=== PATIENT | male | born 1975 | race Two or more races ===

== ENCOUNTER 2019-06-23 08:55 | Inpatient (IN) | payer MEDICARE, MEDICAID ==
[~2019-06-23] VITALS: Ht 180.3 cm; Wt 88.5 kg
--- NOTE | 2019-06-23 08:48 | NUR ---
ED Nurse Note: pt arrived with RA 861 due to back pain. per pt he was sitting at the bus stop and his knees "buckled and i fell back on the bus stop chair and hit my back"
[2019-06-23 08:50] VITALS: BP 152/95
[~2019-06-23 08:55] MED LIST: CLINDAMYCIN HC300 MG ORAL; DAPSONE25 MG ORAL; ESCITALOPRAM OX20 MG ORAL; FISH OIL500 M2 PO; GABAPENTIN800 MG ORAL; HYDROCODON-ACE1 EA13 ORAL; IBUPROFEN600 MG ORAL; ISENTRESS400 MG ORAL; LEVETIRACETAM500 MG ORAL; LISINOPRIL20 MG ORAL; METFORMIN HCL850 M1 ORAL; MORPHINE SULFAT30 M7 PO; NORCO 5-325 TA1 EACH ORAL; PERCOCET 5-3251 EACH ORAL; PREDNISONE20 MG ORAL; TIZANIDINE HCL4 MG ORAL; TRUVADA1 TAB ORAL; VORICONAZOLE200 MG ORAL; WARFARIN SODIUM1 MG ORAL; XARELTO10 MG ORAL; ZOFRAN ODT4 MG ORAL
--- NOTE | 2019-06-23 09:11 | Emergency Room Report ---
History of Present Illness General Chief Complaint: Multiple Trauma/Fall Source: Patient Present Illness HPI Patient presents with increased back pain. He had a period of loss of consciousness and woke up on the ground next to a bus bench. He was not feeling well prior to that. He has chronic pain but after he woke up he had excruciating pain in his lower back. The pain radiates somewhat towards his right leg. He was transported by BLS as they did not understand that the patient lost consciousness. He bit his tongue on the R side. The pain is rated 10/10, burning and and aching. He is quite anxious. He felt somewhat nauseated. No vomiting. He has a fentanyl patch. Review of med recon reveals Keppra. H/O seizures and coccidiomycosis encephalitis. Prior dose of Keppra documented 2 g twice a day. His reports that this is now 1500 mg twice a day. The patient is also on antivirals and was taking Xarelto. He has a history of DVT and pulmonary embolus. An IVC filter has been placed. Patient admits to methamphetamine use earlier. No fevers, chills, sore throat, chest pain, palpitations, diarrhea, dysuria, abdominal pain, shortness of breath, rashes. Allergies: Coded Allergies: SULFA (SULFONAMIDE ANTIBIOTICS) (Verified Allergy, Mild, 06/21/09) MORPHINE (Verified Allergy, Unknown, 10/13/14) ALLERGIC TO LIQUID MORPHINE ONLY PER S.O. Uncoded Allergies: SULFA (Allergy, Unknown, 06/23/19) Patient History Past Medical History: see triage record Past Surgical History: other - IVC flter, Port-A-Cath Social History: Reports: smoking, drug use Social History Narrative Reviewed Nursing Documentation: PMH: Agreed; PSxH: Agreed Nursing Documentation-PMH Past Medical History: No History, Except For Hx Cardiac Problems: No - HIV, substance abuse, Meningitis, shunt Hx Hypertension: Yes Hx COPD: Yes - PE Hx Diabetes: Yes Hx Cancer: No Hx Gastrointestinal Problems: Yes - hiv History Of Psychiatric Problem: Yes Hx Meningitis: Yes Hx Encephalitis: Yes - ENCEPHALOPATHY Hx Seizures: Yes Hx Peripheral Neuropathy: Yes Hx Concentration Difficulty: Yes Hx Dizziness: Yes Hx Headaches: Yes Hx Weakness: Yes Hx Fatigue: Yes Hx Neurologic Surgery: Yes Review of Systems All Other Systems: negative except mentioned in HPI Physical Exam Vital Signs Date Time Temp Pulse Resp B/P (MAP) Pulse Ox O2 Delivery O2 Flow Rate FiO2 06/23/19 08:40 97.7 74 17 152/95 (114) 100 Room Air Sp02 EP Interpretation: reviewed, normal General Appearance: GCS 15, non-toxic, moderate distress Head: normocephalic Eyes: bilateral eye PERRL, bilateral eye EOMI, bilateral eye Scleral Injection ENT: moist mucus membranes - Lingual maceration right Neck: full range of motion, supple, no bony tend Respiratory: chest non-tender, lungs clear, normal breath sounds Cardiovascular #1: regular rate, rhythm Cardiovascular #2: 2+ radial (R) Gastrointestinal: normal inspection, normal bowel sounds, non tender, no mass, non-distended Musculoskeletal: decreased range of motion - Due to pain, no calf tenderness, tender - Lumbar area with possible point tenderness, other - Straight leg raise bilaterally increases back pain. Neurologic: alert, motor strength/tone normal, photographic process attendant III-XII nml as tested, DTRs symmetric, oriented x3, sensory intact Psychiatric: anxious Skin: no rash, warm/dry Medical Decision Making Diagnostic Impression: Primary Impression: Uncontrolled seizures Qualified Codes: R56.9 - Unspecified convulsions Additional Impressions: Substance abuse Fall Qualified Codes: W19.XXXA - Unspecified fall, initial encounter Lumbar contusion Qualified Codes: S30.0XXA - Contusion of lower back and pelvis, initial encounter Anemia Qualified Codes: D64.89 - Other specified anemias Thrombocytopenia Opiate dependence Qualified Codes: F11.29 - Opioid dependence with unspecified opioid-induced disorder ER Course Patient presents with a period of loss of consciousness and increased back pain. Differential includes syncope, exacerbation of back pain, lumbar fracture , seizure amongst others. Evaluation with EKG, chest x-ray, CT of the lumbar spine and labs. Patient given dose of Toradol, Ativan and Keppra. Keppra level drawn before Keppra given. Due to the high risk comorbidities most likely patient will need to be admitted for observation. We need to exclude unstable fracture of the lumbar spine. EKG normal sinus rhythm with sinus arrhythmia. Chest x-ray with Port-A-Cath. No infiltrates. Labs with pancytopenia. Elevated liver transaminases and CPK. Bicarbonate 19. Tox screen positive for amphetamine. CT of the back without fracture. See full report below. Patient improved with analgesia in particular after opiates administered. Because of the possibility of uncontrolled seizures patient admitted telemetry observation. In addition he has increased risk of hematoma formation due to thrombocytopenia. Discussed results with . Laboratory Tests Test 06/23/19 09:34 06/23/19 10:37 White Blood Count 4.8 K/UL (4.8-10.8) Red Blood Count 3.42 M/UL (4.70-6.10) L Hemoglobin 9.5 G/DL (14.2-18.0) L Hematocrit 29.0 % (42.0-52.0) L Mean Corpuscular Volume 85 FL (80-99) Mean Corpuscular Hemoglobin 27.8 PG (27.0-31.0) Mean Corpuscular Hemoglobin Concent 32.9 G/DL (32.0-36.0) Red Cell Distribution Width 15.2 % (11.6-14.8) H Platelet Count 51 K/UL (150-450) L Mean Platelet Volume 6.0 FL (6.5-10.1) L Neutrophils (%) (Auto) % (45.0-75.0) Lymphocytes (%) (Auto) % (20.0-45.0) Monocytes (%) (Auto) % (1.0-10.0) Eosinophils (%) (Auto) % (0.0-3.0) Basophils (%) (Auto) % (0.0-2.0) Differential Total Cells Counted 100 Neutrophils % (Manual) 62 % (45-75) Lymphocytes % (Manual) 30 % (20-45) Monocytes % (Manual) 8 % (1-10) Eosinophils % (Manual) 0 % (0-3) Basophils % (Manual) 0 % (0-2) Band Neutrophils 0 % (0-8) Platelet Estimate Decreased L Platelet Morphology Normal Anisocytosis 1+ Sodium Level 140 MMOL/L (136-145) Potassium Level 4.0 MMOL/L (3.5-5.1) Chloride Level 109 MMOL/L (98-107) H Carbon Dioxide Level 19 MMOL/L (21-32) L Anion Gap 12 mmol/L (5-15) Blood Urea Nitrogen 23 mg/dL (7-18) H Creatinine 1.0 MG/DL (0.55-1.30) Estimate Glomerular Filtration Rate > 60 mL/min (>60) Glucose Level 129 MG/DL (74-106) H Calcium Level 7.9 MG/DL (8.5-10.1) L Total Bilirubin 2.5 MG/DL (0.2-1.0) H Direct Bilirubin 0.5 MG/DL (0.0-0.3) H Aspartate Amino Transferase (AST) 56 U/L (15-37) H Alanine Aminotransferase (ALT) 28 U/L (12-78) Alkaline Phosphatase 203 U/L (46-116) H Total Creatine Kinase 775 U/L (26-308) H Troponin I 0.001 ng/mL (0.000-0.056) Total Protein 6.9 G/DL (6.4-8.2) Albumin 3.7 G/DL (3.4-5.0) Globulin 3.2 g/dL Albumin/Globulin Ratio 1.2 (1.0-2.7) Acetaminophen Level < 2 MCG/ML (10-30) L Levetiracetam Level Pending Serum Alcohol < 3 mg/dL Urine Color Yellow Urine Appearance Clear Urine pH 6 (4.5-8.0) Urine Specific Corry 1.010 (1.005-1.035) Urine Protein 3+ (NEGATIVE) H Urine Glucose (UA) Negative (NEGATIVE) Urine Ketones Negative (NEGATIVE) Urine Blood 2+ (NEGATIVE) H Urine Nitrite Negative (NEGATIVE) Urine Bilirubin Negative (NEGATIVE) Urine Urobilinogen Normal MG/DL (0.0-1.0) Urine Leukocyte Esterase Negative (NEGATIVE) Urine RBC 2-4 /HPF (0 - 0) H Urine WBC 0-2 /HPF (0 - 0) Urine Squamous Epithelial Cells Occasional /LPF Urine Bacteria Occasional /HPF (NONE) Urine Opiates Screen Negative (NEGATIVE) Urine Barbiturates Screen Negative (NEGATIVE) Phencyclidine (PCP) Screen Negative (NEGATIVE) Urine Amphetamines Screen Positive (NEGATIVE) H Urine Benzodiazepines Screen Negative (NEGATIVE) Urine Cocaine Screen Negative (NEGATIVE) Urine Marijuana (THC) Screen Negative (NEGATIVE) EKG Diagnostic Results Rate: normal Rhythm: NSR ST Segments: no acute changes - Sinus arrhythmia Rhythm Strip Diag. Results EP Interpretation: yes Rhythm: NSR, no PVC's, no ectopy Chest X-Ray Diagnostic Results Chest X-Ray Diagnostic Results : Chest X-Ray Ordered: Yes # of Views/Limited/Complete: 1 View Indication: Other EP Interpretation: Yes Interpretation: no consolidation, no effusion, no pneumothorax, other - Portacath Impression: Other Electronically Signed by: Electronically signed by Enrique Redman MD CT/MRI/US Diagnostic Results CT/MRI/US Diagnostic Results : Imaging Test Ordered: lumbar Impression IMPRESSION: * No evidence of acute fracture or traumatic malalignment. * Diffuse sclerosis of the osseous structures which may be related to hyperparathyroidism (primary versus secondary, for example renal osteodystrophy) . Additional considerations including multiple myeloma or bony menisci (primary or secondary) not excluded. Clinical correlation recommended. * Multilevel degenerative changes of the lumbar spine, progressed compared to the prior exam in 2014. * Indwelling IVC filter, new compared to exam Last Vital Signs Date Time Temp Pulse Resp B/P (MAP) Pulse Ox O2 Delivery O2 Flow Rate FiO2 06/23/19 16:00 98.1 89 20 119/72 (88) 97 06/23/19 14:33 Room Air Status: improved Disposition: PLACE IN OBSERVATION Condition: Serious Enrique Redman MD Jun 23, 2019 09:11
[2019-06-23] MEDS ORDERED: Ketorolac 30mg Inj IV ONE (09:15)
[2019-06-23] MEDS ORDERED: LORazepam Inj 2mg/ml 1ml IV ONE (09:15)
[2019-06-23] MEDS ORDERED: levETIRAcetam 500mg/NS100ml 100 ML IVPB ONE (09:45)
--- NOTE | 2019-06-23 09:45 | NUR ---
ED Nurse Note: Pt states he took crystal prior to arrival
--- NOTE | 2019-06-23 09:50 | NUR ---
ED Nurse Note: pt taken to CT
[2019-06-23 09:51] LABS: HEMOGLOBIN 9.5 G/DL (14.2-18.0); MEAN CORPUSCULAR VOLUME 85 FL (80-99); PLATELET COUNT 51 K/UL (150-450); RED BLOOD COUNT 3.42 M/UL (4.70-6.10); RED CELL DISTRIBUTION WIDTH 15.2 % (11.6-14.8); WHITE BLOOD COUNT 4.8 K/UL (4.8-10.8)
[2019-06-23] MEDS ORDERED: FUROSEMIDE20 M1 ORAL (09:54)
[2019-06-23] MEDS ORDERED: ACYCLOVIR200 MG ORAL (09:54)
[2019-06-23] MEDS ORDERED: VIAGRA25 MG ORAL (09:54)
[2019-06-23] MEDS ORDERED: DIAZEPAM2 MG ORAL (09:54)
[2019-06-23] MEDS ORDERED: NEXIUM2.5 MG ORAL (09:54)
[2019-06-23] MEDS ORDERED: PHENERGAN SUPP25 MG BC (09:54)
[2019-06-23] MEDS ORDERED: LOPID600 MG ORAL (09:54)
[2019-06-23] MEDS ORDERED: KEPPRA500 M4 ORAL (09:54)
--- NOTE | 2019-06-23 09:55 | NUR ---
ED Nurse Note: Received pt's medication list from EMT and went over with pt. Pt agreed with all the medications but was unable to recall the dose for each medication. pt provided his number and told nurse to ask him. the did not answer. [phone]
[2019-06-23 10:01] LABS: ANION GAP 12 mmol/L (5-15); BLOOD UREA NITROGEN 23 mg/dL (7-18); CALCIUM 7.9 MG/DL (8.5-10.1); CARBON DIOXIDE 19 MMOL/L (21-32); CHLORIDE 109 MMOL/L (98-107); SODIUM 140 MMOL/L (136-145)
[2019-06-23 10:05] LABS: ALANINE AMINOTRANSFERASE 28 U/L (12-78); ALBUMIN 3.7 G/DL (3.4-5.0); ALBUMIN/GLOBULIN RATIO 1.2 (1.0-2.7); ALKALINE PHOSPHATASE 203 U/L (46-116); ASPARTATE AMINO TRANSFERASE 56 U/L (15-37); BILIRUBIN,TOTAL 2.5 MG/DL (0.2-1.0); CREATINE KINASE 775 U/L (26-308)
--- NOTE | 2019-06-23 10:10 | NUR ---
ED Nurse Note: pt returned from CT
[2019-06-23 10:14] LABS: BILIRUBIN,DIRECT 0.5 MG/DL (0.0-0.3)
[2019-06-23] MEDS ORDERED: Hydromorphone 0.5mg/0.5ml inj IVP ONE (10:45)
--- NOTE | 2019-06-23 10:45 | NUR ---
ED Nurse Note: Dalton at bedside; taking belongings home
[2019-06-23 10:54] VITALS: BP 152/101
[2019-06-23 11:07] LABS: APPEARANCE,URINE CLEAR; BILIRUBIN, URINE NEGATIVE (NEGATIVE); GLUCOSE, URINE (UA) NEGATIVE (NEGATIVE); KETONES,URINE NEGATIVE (NEGATIVE); LEUKOCYTE ESTERASE ,URINE NEGATIVE (NEGATIVE); NITRITE,URINE NEGATIVE (NEGATIVE); PH,URINE 6 (4.5-8.0); PROTEIN,URINE 3+ (NEGATIVE); UROBILINOGEN,URINE NORMAL MG/DL (0.0-1.0)
[2019-06-23 11:10] LABS: COLOR,URINE YELLOW
--- NOTE | 2019-06-23 11:21 | NUR ---
ED Nurse Note: pt asleep, comfortable in bed
--- NOTE | 2019-06-23 11:37 | NUR ---
ED Nurse Note: Sonny (significant other)-
--- NOTE | 2019-06-23 11:38 | NUR ---
ED Nurse Note: Pt taken for xray
--- NOTE | 2019-06-23 11:56 | NUR ---
ED Nurse Note: Blood redraw done performed by filling hauler.
--- NOTE | 2019-06-23 11:58 | NUR ---
ED Nurse Note: X-ray on bedside.
--- NOTE | 2019-06-23 12:00 | NUR ---
ED Nurse Note: X-ray done.
--- NOTE | 2019-06-23 12:56 | Diagnostic Imaging Report ---
Indication: Back pain status post injury Technique: CT lumbar spine was performed utilizing automated exposure control without intravenous contrast material. Axial, sagittal and coronal images were generated. CT dose: Total DLP 1012 mGycm; CTDI vol 27 mGy Comparison: Relation made to images of the lumbar spine from CT of the abdomen and pelvis 11/24/2013 Findings: There are 5 nonrib-bearing lumbar-type vertebral bodies, assuming 12 paired ribs. Lumbar lordosis is maintained; there is no evidence of spondylolisthesis. No acute lumbar spine fractures identified. Vertebral body heights are maintained; there is no evidence of compression fracture. There are multilevel discogenic degenerative changes of the lumbar spine manifested by small disc bulges as well as multilevel facet joint hypertrophy and productive changes between the spinous processes. Degenerative changes are pronounced at L4-5 where facet arthropathy and hypertrophy of the ligamentum flavum as well as a disc osteophyte complex results in mild to moderate central canal stenosis and mild to moderate right and moderate to severe left foraminal narrowing at L4-5. There is diffuse sclerosis of the bony structures. Abdominal aorta is normal in caliber. No renal atrophy is identified. There is an infrarenal IVC filter in place. Some mild calyceal penetration is noted associated with some of the legs of the filter. IMPRESSION: * No evidence of acute fracture or traumatic malalignment. * Diffuse sclerosis of the osseous structures which may be related to hyperparathyroidism (primary versus secondary, for example renal osteodystrophy). Additional considerations including multiple myeloma or bony menisci (primary or secondary) not excluded. Clinical correlation recommended. * Multilevel degenerative changes of the lumbar spine, progressed compared to the prior exam in 2013. * Indwelling IVC filter, new compared to exam The CT scanner at [facility] is accredited by the [employer] and the scans are performed using protocols designed to limit radiation exposure to as low as reasonably achievable to attain images of sufficient resolution adequate for diagnostic evaluation.
--- NOTE | 2019-06-23 12:57 | Diagnostic Imaging Report ---
Indication: Seizure Technique: XRAY Chest 1v Comparison: 11/25/2013 Findings: Heart size and mediastinal contours within normal limits for AP technique. A right chest wall Port-A-Cath is noted in place. The port is accessed with a Martinez needle. There is no focal airspace consolidation. No pleural effusion or pneumothorax. No evidence to suggest pulmonary edema. There is a few sclerosis of the vertebral bodies. IVC filter partially visualized. Impression: No definite radiographic evidence of acute cardiopulmonary disease. Mediport in place. Increased sclerosis of the vertebral bodies noted, as better seen on concurrent lumbar spine CT. This may be related to hyperparathyroidism (primary versus secondary). Additional considerations including multiple myeloma or bony malignancy, primary or secondary, not excluded. Correlation with history recommended.
--- NOTE | 2019-06-23 13:26 | NUR ---
ED Nurse Note:. telephone report given to HUBER Shepard for contiuty of care
--- NOTE | 2019-06-23 13:44 | NUR ---
NURSE NOTES: Pt. came in to the floor via gurney. Transfer to bed. Complaining of pain 10/10. Dilaudid 0.5mg given at ER. Will communicate with MD. S/P fall. In RA. Denies SOB. R chest perm-a-cath, flushed and SL. Belongings checked. Pt. verbalized medications on list are not correct and will bring lists of meds at night. Hospital protocol communicated, oriented to room, visiting hrs... child monitor applied, gown changed and Pt. made comfortable. Bed on lowest position, side rails upx2, brakes engaged, alarm on. Call light within easy reach. Seizure precaution implemented.
--- NOTE | 2019-06-23 14:10 | NUR ---
TRANSFER TO FLOOR: Patient transferred to tele as ordered, per ERMD. Report given to HUBER Cash. Belongings and medications given to spouse Dalton.
[2019-06-23 14:35] VITALS: BP 114/76
[2019-06-23 16:00] VITALS: BP 119/72
[2019-06-23] MEDS ORDERED: Hydromorphone 0.5mg/0.5ml inj IVP PRN (16:30)
--- NOTE | 2019-06-23 19:30 | NUR ---
NURSE NOTES: Received patient from [employer]. Patient in bed, at bedside. Patient c/o generalized pain, back, shoulders, legs, arms. Alert and oriented x3. On room air, no signs of respiratory distress. Portacath with access on right upper chest. Bed in low position, locked,call light within reach. brought medication bottles from home. Notified Dr. Johnson regarding patient's home meds and patient's unrelieved pain.
--- NOTE | 2019-06-23 19:40 | NUR ---
HAND-OFF: Report given to HUBER [place]. Plan of care endorsed.
[2019-06-23 20:00] VITALS: BP 117/85
[2019-06-23] MEDS ORDERED: HYDROmorphone 1mg/ml Carpuject IVP PRN (20:00)
--- NOTE | 2019-06-23 20:00 | NUR ---
NURSE NOTES: Received orders from Dr. Johnson to continue home meds and to increase dilauded to 1mg ivp q8hrs.
--- NOTE | 2019-06-23 20:30 | NUR ---
NURSE NOTES: Per , patient has fentanyl patch and percocet at home but does not know the dosage. Patient states he does not have any patches on right now.
--- NOTE | 2019-06-23 21:30 | NUR ---
NURSE NOTES: Blood sugar 178. Administered metformin as ordered.
[2019-06-23] MEDS: Topiramate 25mg tab ORAL SCH (21:37)
[2019-06-23] MEDS: Lacosamide 50mg tablet ORAL SCH (21:39)
--- NOTE | 2019-06-23 22:00 | NUR ---
NURSE NOTES: Received order from Dr. Johnson to call Dr. Guevara for pain medications. Called Dr. Guevara and left message.
[2019-06-24] VITALS: BP 131/87
[2019-06-24] MEDS: HYDROmorphone 1mg/ml Carpuject IVP PRN ×6 (00:25→22:57)
[2019-06-24 04:00] VITALS: BP 143/87
[2019-06-24 05:40] LABS: HEMATOCRIT 28.9 % (42.0-52.0); HEMOGLOBIN 9.4 G/DL (14.2-18.0); MEAN CORPUSCULAR VOLUME 85 FL (80-99); PLATELET COUNT 51 K/UL (150-450); RED BLOOD COUNT 3.39 M/UL (4.70-6.10); RED CELL DISTRIBUTION WIDTH 15.1 % (11.6-14.8); WHITE BLOOD COUNT 4.1 K/UL (4.8-10.8)
--- NOTE | 2019-06-24 05:40 | Consultation ---
History of Present Illness General Chief Complaint: Multiple Trauma/Fall Present Illness Allergies: Coded Allergies: SULFA (SULFONAMIDE ANTIBIOTICS) (Verified Allergy, Mild, 06/21/09) MORPHINE (Verified Allergy, Unknown, 10/13/14) ALLERGIC TO LIQUID MORPHINE ONLY PER S.O. Uncoded Allergies: SULFA (Allergy, Unknown, 06/23/19) Medication History Scheduled Acyclovir* (Acyclovir*), Unknown Dose ORAL FIVE TIMES A DAY, (Reported) Clindamycin Hcl (Clindamycin Hcl), 300 MG ORAL THREE TIMES A DAY Clindamycin Hcl (Clindamycin Hcl), 300 MG ORAL THREE TIMES A DAY Dapsone* (Dapsone*), 100 MG ORAL DAILY, (Reported) Emtricitabine/Tenofovir (Truvada 200 mg-300 mg Tablet), 1 TAB ORAL DAILY, ( Reported) Escitalopram Oxalate (Escitalopram Oxalate*), 20 MG ORAL DAILY, (Reported) Esomeprazole Magnesium (Nexium), Unknown Dose ORAL DAILY, (Reported) Furosemide* (Lasix*), Unknown Dose ORAL DAILY, (Reported) Gabapentin* (Gabapentin*), 800 MG ORAL THREE TIMES A DAY, (Reported) Gemfibrozil* (Lopid*), Unknown Dose ORAL TWICE A DAY, (Reported) Ibuprofen* (Motrin*), 600 MG ORAL THREE TIMES A DAY Levetiracetam* (Levetiracetam*), 2,000 MG ORAL TWICE A DAY, (Reported) Lisinopril (Lisinopril*), 20 MG ORAL DAILY, (Reported) Metformin Hcl* (Metformin Hcl*), Unknown Dose ORAL BID, (Reported) Prednisone* (Prednisone*), 40 MG ORAL DAILY Raltegravir (Isentress), 400 MG ORAL EVERY 12 HOURS, (Reported) Rivaroxaban (Xarelto*), 20 MG ORAL DAILY, (Reported) Voriconazole* (Vfend*), 200 MG ORAL TWICE A DAY, (Reported) Scheduled PRN Diazepam* (Diazepam*), Unknown Dose ORAL Q6H PRN for ANXIETY, (Reported) Hydrocodone Bit/Acetaminophen 10-325* (Hydrocodon-Acetaminophn 10-325*), 1 TAB ORAL TID PRN for For Pain, (Reported) Hydrocodone Bit/Acetaminophen 5-325* ([place] 5-325*), 1 TAB ORAL Q6H PRN for For Pain Morphine Sulfate (Morphine Sulfate Cr), 15 MG PO BID PRN for For Pain, (Reported ) Ondansetron Odt* (Zofran Odt*), 4 MG ORAL Q6H PRN for Nausea & Vomiting Oxycodone/Acetaminophen 5-325* (Percocet 5-325 Mg Tablet*), 1 TAB ORAL Q6H PRN for For Pain Oxycodone/Acetaminophen 5-325* (Percocet 5-325 Mg Tablet*), 1 TAB ORAL Q4H PRN for For Pain Promethazine HCl (Promethegan), Unknown Dose BC Q6H PRN for Nausea & Vomiting, ( Reported) Tizanidine Hcl* (Zanaflex*), 4 MG ORAL QHS PRN for For Pain, (Reported) Miscellaneous Medications Levetiracetam (Keppra), Unknown Dose ORAL, (Reported) [place]-3 Fatty Acids (Fish Oil), 1,000 MG PO, (Reported) Sildenafil Citrate (Viagra), Unknown Dose ORAL, (Reported) Patient History Healthcare decision maker Resuscitation status Advanced Directive on File Physical Exam Last 24 Hour Vital Signs Date Time Temp Pulse Resp B/P (MAP) Pulse Ox O2 Delivery O2 Flow Rate FiO2 06/24/19 00:00 97.7 78 19 131/87 (102) 97 06/24/19 00:00 84 06/23/19 21:00 Room Air Room Air 06/23/19 20:00 86 06/23/19 20:00 97.7 85 18 117/85 (96) 98 06/23/19 16:00 98.1 89 20 119/72 (88) 97 06/23/19 14:35 97.7 87 20 114/76 (89) 98 06/23/19 14:34 82 06/23/19 14:33 Room Air 06/23/19 14:17 97.5 76 19 147/97 100 Room Air 06/23/19 11:20 97.7 06/23/19 10:54 97.7 70 16 152/101 100 Room Air 06/23/19 10:08 97.7 06/23/19 08:50 97.7 74 17 152/95 100 Room Air 06/23/19 08:50 74 17 Room Air 06/23/19 08:40 97.7 74 17 152/95 (114) 100 Room Air Intake and Output 06/23/19 06/24/19 19:00 07:00 Intake Total 1560 ml Balance 1560 ml Intake Oral 460 ml IV Total 1100 ml # Voids 2 # Bowel Movements 2 Laboratory Tests Test 06/23/19 09:34 06/23/19 10:37 06/24/19 04:40 White Blood Count 4.8 K/UL (4.8-10.8) Pending Red Blood Count 3.42 M/UL (4.70-6.10) L Pending Hemoglobin 9.5 G/DL (14.2-18.0) L Pending Hematocrit 29.0 % (42.0-52.0) L Pending Mean Corpuscular Volume 85 FL (80-99) Pending Mean Corpuscular Hemoglobin 27.8 PG (27.0-31.0) Pending Mean Corpuscular Hemoglobin Concent 32.9 G/DL (32.0-36.0) Pending Red Cell Distribution Width 15.2 % (11.6-14.8) H Pending Platelet Count 51 K/UL (150-450) L Pending Mean Platelet Volume 6.0 FL (6.5-10.1) L Pending Neutrophils (%) (Auto) % (45.0-75.0) Pending Lymphocytes (%) (Auto) % (20.0-45.0) Pending Monocytes (%) (Auto) % (1.0-10.0) Pending Eosinophils (%) (Auto) % (0.0-3.0) Pending Basophils (%) (Auto) % (0.0-2.0) Pending Differential Total Cells Counted 100 Neutrophils % (Manual) 62 % (45-75) Lymphocytes % (Manual) 30 % (20-45) Monocytes % (Manual) 8 % (1-10) Eosinophils % (Manual) 0 % (0-3) Basophils % (Manual) 0 % (0-2) Band Neutrophils 0 % (0-8) Platelet Estimate Decreased L Platelet Morphology Normal Anisocytosis 1+ Sodium Level 140 MMOL/L (136-145) Pending Potassium Level 4.0 MMOL/L (3.5-5.1) Pending Chloride Level 109 MMOL/L (98-107) H Pending Carbon Dioxide Level 19 MMOL/L (21-32) L Pending Anion Gap 12 mmol/L (5-15) Blood Urea Nitrogen 23 mg/dL (7-18) H Pending Creatinine 1.0 MG/DL (0.55-1.30) Pending Estimat Glomerular Filtration Rate > 60 mL/min (>60) Pending Glucose Level 129 MG/DL (74-106) H Pending Calcium Level 7.9 MG/DL (8.5-10.1) L Pending Total Bilirubin 2.5 MG/DL (0.2-1.0) H Direct Bilirubin 0.5 MG/DL (0.0-0.3) H Aspartate Amino Transf (AST/SGOT) 56 U/L (15-37) H Alanine Aminotransferase (ALT/SGPT) 28 U/L (12-78) Alkaline Phosphatase 203 U/L (46-116) H Total Creatine Kinase 775 U/L (26-308) H Troponin I 0.001 ng/mL (0.000-0.056) Total Protein 6.9 G/DL (6.4-8.2) Albumin 3.7 G/DL (3.4-5.0) Globulin 3.2 g/dL Albumin/Globulin Ratio 1.2 (1.0-2.7) Acetaminophen Level < 2 MCG/ML (10-30) L Levetiracetam (Keppra) Level Pending Serum Alcohol < 3 mg/dL Urine Color Yellow Urine Appearance Clear Urine pH 6 (4.5-8.0) Urine Specific [place] 1.010 (1.005-1.035) Urine Protein 3+ (NEGATIVE) H Urine Glucose (UA) Negative (NEGATIVE) Urine Ketones Negative (NEGATIVE) Urine Blood 2+ (NEGATIVE) H Urine Nitrite Negative (NEGATIVE) Urine Bilirubin Negative (NEGATIVE) Urine Urobilinogen Normal MG/DL (0.0-1.0) Urine Leukocyte Esterase Negative (NEGATIVE) Urine RBC 2-4 /HPF (0 - 0) H Urine WBC 0-2 /HPF (0 - 0) Urine Squamous Epithelial Cells Occasional /LPF Urine Bacteria Occasional /HPF (NONE) Urine Opiates Screen Negative (NEGATIVE) Urine Barbiturates Screen Negative (NEGATIVE) Phencyclidine (PCP) Screen Negative (NEGATIVE) Urine Amphetamines Screen Positive (NEGATIVE) H Urine Benzodiazepines Screen Negative (NEGATIVE) Urine Cocaine Screen Negative (NEGATIVE) Urine Marijuana (THC) Screen Negative (NEGATIVE) Height (Feet): 5 Height (Inches): 11.00 Weight (Pounds): 195 Medications Current Medications Medications (Trade) Dose Ordered Sig/Diaz Route PRN Reason Start Time Stop Time Status Last Admin Dose Admin Gemfibrozil (Lopid) 600 mg TWICE A DAY ORAL 06/23/19 22:00 07/23/19 21:59 06/23/19 22:42 Hydromorphone HCl (Dilaudid) 1 mg Q4H PRN IVP For Pain 06/23/19 22:15 06/30/19 22:14 06/24/19 04:42 Lacosamide (Vimpat) 200 mg Q12HR ORAL 06/23/19 21:00 07/23/19 20:59 06/23/19 21:39 Levetiracetam (Keppra) 1,750 mg Q12HR ORAL 06/23/19 21:00 07/23/19 20:59 06/23/19 21:39 Metformin HCl (Glucophage) 850 mg BID ORAL 06/23/19 21:00 07/23/19 20:59 06/23/19 21:37 Patient Own Medication (Patient's Own Med) 1 ea BID ORAL 06/23/19 23:00 07/23/19 22:59 06/23/19 22:43 Patient Own Medication (Patient's Own Med) 1 ea BIDPC ORAL 06/23/19 23:00 07/23/19 22:59 06/23/19 22:43 Patient Own Medication (Patient's Own Med) 1 ea DAILY ORAL 06/24/19 09:00 07/24/19 08:59 Patient Own Medication (Patient's Own Med) 1 ea DAILY ORAL 06/24/19 09:00 07/24/19 08:59 Rifaximin (Xifaxan) 550 mg EVERY 12 HOURS ORAL 06/23/19 21:00 06/30/19 20:59 06/23/19 21:36 Topiramate (Topamax) 75 mg EVERY 12 HOURS ORAL 06/23/19 21:00 07/23/19 20:59 06/23/19 21:37 Voriconazole (Vfend) 200 mg EVERY 12 HOURS ORAL 06/23/19 22:00 06/24/19 21:59 06/23/19 22:42 Assessment/Plan Assessment/Plan: Hematology Consultation REQ : Chantal Ernandez DOS: 06/24/2019 RFC: Severe thrombocytopenia, dvt history on xarelto ID 44y old male presents with increased back pain. He had a period of loss of consciousness and woke up on the ground next to a bus bench. He was not feeling well prior to that. He has chronic pain but after he woke up he had excruciating pain in his lower back. The pain radiates somewhat towards his right leg. He was transported by BLS as they did not understand that the patient lost consciousness. He bit his tongue on the R side. The pain is rated 10/10, burning and and aching. He is quite anxious. He felt somewhat nauseated. No vomiting. He has a fentanyl patch. Review of med recon reveals Keppra. H/O seizures and coccidiomycosis encephalitis. Prior dose of Keppra documented 2 g twice a day. His reports that this is now 1500 mg twice a day. The patient is also on antivirals and was taking Xarelto. He has a history of DVT and pulmonary embolus. An IVC filter has been placed. Patient admits to methamphetamine use earlier. No fevers, chills, sore throat, chest pain, palpitations, diarrhea, dysuria, abdominal pain, shortness of breath , rashes. Has been admitted in the past, 2013 and reviewed that admission info Coded Allergies: SULFA (SULFONAMIDE ANTIBIOTICS) (Verified Allergy, Mild, 06/21/09) MORPHINE (Verified Allergy, Unknown, 10/13/14) ALLERGIC TO LIQUID MORPHINE ONLY PER S.O. Uncoded Allergies: SULFA (Allergy, Unknown, 06/23/19) Past Medical History: see triage record Past Surgical History: other - IVC flter, Port-A-Cath Social History: Reports: smoking, drug use Social History Narrative Reviewed Nursing Documentation: PMH: Agreed; PSxH: Agreed Past Medical History: No History, Except For Hx Cardiac Problems: No - HIV, substance abuse, Meningitis, shunt Hx Hypertension: Yes Hx COPD: Yes - PE Hx Diabetes: Yes Hx Cancer: No Hx Gastrointestinal Problems: Yes - hiv History Of Psychiatric Problem: Yes Hx Meningitis: Yes Hx Encephalitis: Yes - ENCEPHALOPATHY Hx Seizures: Yes Hx Peripheral Neuropathy: Yes Hx Concentration Difficulty: Yes Hx Dizziness: Yes Hx Headaches: Yes Hx Weakness: Yes Hx Fatigue: Yes Hx Neurologic Surgery: Yes PE Vitals noted Gen: nad, A+O x3 Pulm: ctab, no cwr CV: rrr, no mgr Abd: sft, nt, nd Ext: no cce Labs: noted Imaging: reviewed Assessment and Recs: # Thrombocytopenia, severe -- plt approx 51k at this time, reviewed prior counts and imaging, does have a history of cirrhosis and hiv --> hep panel ordered as has not been done before --> transfuse as needed, hgb goal >7 --> no bleeding, no hemolysis is seen --> path smear has been reviewed --> meds noted # DVt of the lower ext --> as long as is not bleeding, continue xarelto --> okay to monitor on xarelto, has been restarted # Questionable seizure, no acute seizures overnight. --> per neuro eval --> meds restarted antiepilecptics # Human immunodeficiency virus. --> id eval prn # Significant narcotic dependence --> restarted meds --> per Dr. Crump # Obesity --> recommend weight loss # Hypoglycemia --> improved # Diabetes mellitus --> iss and accuchecks qac and qhs Appreciate consultation and dw Wes Krishna MD Jun 24, 2019 05:40
--- NOTE | 2019-06-24 06:00 | Consultation ---
DATE OF CONSULTATION: 06/23/2019 NEUROLOGIC CONSULTATION CONSULTING PHYSICIAN: Rangel Wells M.D. CHIEF COMPLAINT: This is one of several [facility] medical admissions for this 44-year-old man with HIV and AIDS, diagnosed in 1992. He has a history of coccidial meningitis and seizures, who was admitted here at this hospital on 05/13/2013 and discharged on 05/16/2013. The patient saw Dr. Deluca, neurologist. His EEG at that time was abnormal with slowing of the background activities associated with triphasic waves suggestive of a toxic metabolic encephalopathy. The patient saw Dr. Deluca on 05/15/2013 for his seizures, which he has apparently since 2007. The patient was discharged on Keppra and medications for hypertension. The patient also had recurrent seizures. He was seen in the emergency room on 09/03/2013 at this hospital, and he was admitted on 11/25/2013 for seizures. Later in November, he was admitted at this hospital for opiate dependence and had subsequent pain in his feet and abdominal pain, coming to the ER for treatment. The patient is on multiple medications for his seizures. He is on Keppra 1750 mg a day, Topamax 75 mg b.i.d., and Vimpat 200 mg b.i.d. A couple of days ago, he had 3.5 drinks. He has also been under stress lately, not sleeping, and apparently his appetite is decreased. The patient today had run out he does not have a good recollection of what occurred, with blackout spell, bit the tongue on the right side, myalgias, some incontinence, and headache. He woke up in a park bench. He was there for a couple of hours. Finally, the paramedics were called and he came to this hospital. The patient was noted to be anemic with a platelet count of 51,000. He had positive urine for methamphetamine, apparently had taken a few days ago some crystal meth. His Keppra screening was pending. Serum alcohol is less than 3. His urine opiates were negative. The rest of the screening was negative. Urinalysis was pretty much unremarkable, he had a high urine protein. Chemistries revealed a slightly elevated BUN of 23, but the creatinine was normal. GFR was normal. Glucose was 129. Liver function tests were elevated. The patient had an EKG which was normal. A spine CT scan was done today, which was mildly abnormal. He had some degenerative changes in the lumbar spine, which progressed compared to the prior exam in 2013. Diffuse sclerosis of the osseous structure was noted. There were no fractures. His chest x-ray revealed no acute cardiopulmonary disease. There is an IVC filter partially visualized. He had a chest wall Port-A-Cath noted in place. The patient was given and 1 dose of 2 mg of lorazepam. He is complaining of low back pain, given hydromorphone and sodium chloride. I was asked to see the patient in neurologic consultation. The patient with a history of syphilis, treated in his 20s. No lumbar puncture was done. The patient's T-cell level now is 250. Viral load is undetectable. The patient was on acyclovir in the past. He has a lot of pain in his right leg and has trouble moving it. He denies any previous history of stroke. He has confusion and memory loss for "some time." There is no language disorder. He has occasional loss of taste, cannot smell. He has episodes of staring attacks. He apparently is unconscious. He cannot remember the name of the neurologist. He is seen as an outpatient. There is no history of lymphoma. He may have toxoplasmosis. He has daily constant headaches. There is no diplopia. He has a history of myopia. He denies any hearing loss or tinnitus. He sees a doctor, Dr. Kimberly Mcclain at the [facility] in [place]. On 05/15/2013, he had an EEG, which revealed slowing in the background with triphasic waveforms. There is a large amount of beta activity. No evidence of epileptiform activity noted. There is no family history of neurologic disease. PAST MEDICAL HISTORY/PAST MEDICAL ILLNESSES: 1. HIV with AIDS. See above. 2. Coccidial meningitis. 3. Cholelithiasis with cholecystectomy. 4. syphilus in the past. See above. 5. Glucose intolerance. ALLERGIES: Allergic to sulfa drugs and apparently liquid morphine. PAST SURGICAL HISTORY: He has an IVC filter placed and PICC line. FAMILY HISTORY: Father is Mother is in good health. . SURGERIES: See above. Cholecystectomy. REVIEW OF SYSTEMS: See above. Rest of the review of systems noncontributory. PHYSICAL EXAMINATION: GENERAL: A well-developed, overweight man in moderate distress due to the pain. VITAL SIGNS: Blood pressure see chart, pulse 87 and regular, and temperature 97.7 degrees . HEENT: normal. NECK: Supple. There is no tenderness. Carotids are +2 without any bruits. LUNGS: Clear to auscultation. CARDIOVASCULAR: PMI is in the fifth intercostal space in midclavicular line. JVP flat. The patient had normal S1. S2 is physiologically split. There is no S3, S4, murmurs, or rubs appreciated. ABDOMEN: The abdomen is obese. Bowel sounds intact. No tenderness, masses, or organomegaly. BACK: There is some tenderness in the left upper back to palpation. no muscle spasm noted. EXTREMITIES: . NEUROLOGIC: Mental status, judgment is not tested. Affect is appropriate. Memory, past memory is intact to his mother's maiden name and his date of 1975. Immediate memory is 3/3 words. Recent memory, 2/3 words in 5 minutes. Intellect, similarities are concrete. Orientation, time, he thought it is July 2019, he knew he is at [facility] 10th floor." He is oriented to person. He could spell world backward. Language function, spoken speech was fluent without paraphasias. There is no right or left confusion or finger agnosia. CRANIAL NERVE EXAMINATION: CRANIAL NERVE II: Visual ty are intact to confrontation. Fundi were not visualized. CRANIAL NERVE III, IV, AND : Extraocular motility is full. Pupils were 5 mm, round, light reactive. CRANIAL NERVE V: Facial and corneal sensation are intact to fine touch. Pterygoid strength is 5/5. CRANIAL NERVE VII: Facial strength is 5/5 bilaterally. CRANIAL NERVE VIII: Auditory acuity is intact to whisper. CRANIAL NERVE IX AND X: Gag is intact. CRANIAL NERVE XI: Sternocleidomastoid strength is 5/5. CRANIAL NERVE XII: Tongue protrudes in the midline without fasciculations or atrophy. MUSCLE EXAMINATION: Muscle bulk and tone are normal. Strength is 5/5 proximally and distally without pronator drift. REFLEXES: 0 to trace in the upper extremities and 0 in the lower extremities. Toes are slightly upgoing and testing for Babinski response. COORDINATION: [id number] intact. [id number] testing could not be done because of pain. GAIT AND STATION: Not tested. SENSORY EXAMINATION: decreased fine touch to above the ankles, normal in the upper extremities. Proprioception is slightly decreased in toes, possibly in the right DIP joint. Pinprick and fine touch were normal in the upper extremities. IMPRESSION: 1. 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 2. Coccidial meningitis. It is unclear what medications he has been taking. 3. He has postictal or metabolic encephalopathy. See above. 4. Breakthrough seizure, probably related to drug and alcohol withdrawal. 5. He has a history of. I do not see any evidence for tumor on CT scan of brain. 6. Postsurgical changes . Also, this could focus for a focus for the seizure disorder. There is also a question whether he takes his medications daily. He not quite sure. 7. I am going to restart his medications. Told him to avoid alcohol and methamphetamine. An EEG should be done. PLAN: 1. 20 mg b.i.d. 2. Topamax 75 mg b.i.d. 3. Keppra 3500 mg a day in 2 divided doses. 4. EEG. 5. MRI scan of the brain. 6. Treat his pain. 7. The patient also has an opiate dependency, pain management evaluation and psychiatric evaluation at some point. 8. The peripheral neuropathy, may not need treatment at this time. Thank you for this interesting case. Rangel Wells MD DR: Edd JOB#: [id number] CC: BRYANT
[2019-06-24 06:04] LABS: ANION GAP 12 mmol/L (5-15); BLOOD UREA NITROGEN 22 mg/dL (7-18); CALCIUM 7.9 MG/DL (8.5-10.1); CARBON DIOXIDE 20 MMOL/L (21-32); CHLORIDE 111 MMOL/L (98-107); POTASSIUM 4.1 MMOL/L (3.5-5.1); SODIUM 143 MMOL/L (136-145)
[2019-06-24 08:00] VITALS: BP 144/87
[2019-06-24 08:22] LABS: FERRITIN 39 NG/ML (8-388)
[2019-06-24] MEDS: Topiramate 25mg tab ORAL SCH ×2 (08:55→20:11)
[2019-06-24] MEDS: Lacosamide 50mg tablet ORAL SCH ×2 (08:57→20:11)
[2019-06-24] MEDS: ATAZANAVIR 300 MG ORAL SCH (09:00)
[2019-06-24 09:03] LABS: % IRON SATURATION 12 % (15-50); IRON 37 ug/dL (50-175); TOTAL IRON BINDING CAPACITY 308 ug/dL (250-450)
--- NOTE | 2019-06-24 09:47 | Consultation ---
History of Present Illness General Date patient seen: Jun 18, 2019 Present Illness Allergies: Coded Allergies: SULFA (SULFONAMIDE ANTIBIOTICS) (Verified Allergy, Mild, 06/21/09) MORPHINE (Verified Allergy, Unknown, 10/13/14) ALLERGIC TO LIQUID MORPHINE ONLY PER S.O. Uncoded Allergies: SULFA (Allergy, Unknown, 06/23/19) Medication History Scheduled Acyclovir* (Acyclovir*), Unknown Dose ORAL FIVE TIMES A DAY, (Reported) Clindamycin Hcl (Clindamycin Hcl), 300 MG ORAL THREE TIMES A DAY Clindamycin Hcl (Clindamycin Hcl), 300 MG ORAL THREE TIMES A DAY Dapsone* (Dapsone*), 100 MG ORAL DAILY, (Reported) Emtricitabine/Tenofovir (Truvada 200 mg-300 mg Tablet), 1 TAB ORAL DAILY, ( Reported) Escitalopram Oxalate (Escitalopram Oxalate*), 20 MG ORAL DAILY, (Reported) Esomeprazole Magnesium (Nexium), Unknown Dose ORAL DAILY, (Reported) Furosemide* (Lasix*), Unknown Dose ORAL DAILY, (Reported) Gabapentin* (Gabapentin*), 800 MG ORAL THREE TIMES A DAY, (Reported) Gemfibrozil* (Lopid*), Unknown Dose ORAL TWICE A DAY, (Reported) Ibuprofen* (Motrin*), 600 MG ORAL THREE TIMES A DAY Levetiracetam* (Levetiracetam*), 2,000 MG ORAL TWICE A DAY, (Reported) Lisinopril (Lisinopril*), 20 MG ORAL DAILY, (Reported) Metformin Hcl* (Metformin Hcl*), Unknown Dose ORAL BID, (Reported) Prednisone* (Prednisone*), 40 MG ORAL DAILY Raltegravir (Isentress), 400 MG ORAL EVERY 12 HOURS, (Reported) Rivaroxaban (Xarelto*), 20 MG ORAL DAILY, (Reported) Voriconazole* (Vfend*), 200 MG ORAL TWICE A DAY, (Reported) Scheduled PRN Diazepam* (Diazepam*), Unknown Dose ORAL Q6H PRN for ANXIETY, (Reported) Hydrocodone Bit/Acetaminophen 10-325* (Hydrocodon-Acetaminophn 10-325*), 1 TAB ORAL TID PRN for For Pain, (Reported) Hydrocodone Bit/Acetaminophen 5-325* (Wells 5-325*), 1 TAB ORAL Q6H PRN for For Pain Morphine Sulfate (Morphine Sulfate Cr), 15 MG PO BID PRN for For Pain, (Reported ) Ondansetron Odt* (Zofran Odt*), 4 MG ORAL Q6H PRN for Nausea & Vomiting Oxycodone/Acetaminophen 5-325* (Percocet 5-325 Mg Tablet*), 1 TAB ORAL Q6H PRN for For Pain Oxycodone/Acetaminophen 5-325* (Percocet 5-325 Mg Tablet*), 1 TAB ORAL Q4H PRN for For Pain Promethazine HCl (Promethegan), Unknown Dose BC Q6H PRN for Nausea & Vomiting, ( Reported) Tizanidine Hcl* (Zanaflex*), 4 MG ORAL QHS PRN for For Pain, (Reported) Miscellaneous Medications Levetiracetam (Keppra), Unknown Dose ORAL, (Reported) [place]-3 Fatty Acids (Fish Oil), 1,000 MG PO, (Reported) Sildenafil Citrate (Viagra), Unknown Dose ORAL, (Reported) Patient History Healthcare decision maker Resuscitation status Advanced Directive on File Physical Exam Last 24 Hour Vital Signs Date Time Temp Pulse Resp B/P (MAP) Pulse Ox O2 Delivery O2 Flow Rate FiO2 06/24/19 08:00 98.1 82 18 144/87 (106) 100 06/24/19 04:00 89 06/24/19 04:00 98.2 92 19 143/87 (105) 100 06/24/19 00:00 97.7 78 19 131/87 (102) 97 06/24/19 00:00 84 06/23/19 21:00 Room Air Room Air 06/23/19 20:00 86 06/23/19 20:00 97.7 85 18 117/85 (96) 98 06/23/19 16:00 98.1 89 20 119/72 (88) 97 06/23/19 14:35 97.7 87 20 114/76 (89) 98 06/23/19 14:34 82 06/23/19 14:33 Room Air 06/23/19 14:17 97.5 76 19 147/97 100 Room Air 06/23/19 11:20 97.7 06/23/19 10:54 97.7 70 16 152/101 100 Room Air 06/23/19 10:08 97.7 Intake and Output 06/23/19 06/24/19 19:00 07:00 Intake Total 1560 ml Output Total 1000 ml Balance 1560 ml -1000 ml Intake Oral 460 ml IV Total 1100 ml Output Urine Total 1000 ml # Voids 2 4 # Bowel Movements 2 Laboratory Tests Test 06/23/19 10:37 06/24/19 04:40 06/24/19 08:10 Urine Color Yellow Urine Appearance Clear Urine pH 6 (4.5-8.0) Urine Specific [place] 1.010 (1.005-1.035) Urine Protein 3+ (NEGATIVE) H Urine Glucose (UA) Negative (NEGATIVE) Urine Ketones Negative (NEGATIVE) Urine Blood 2+ (NEGATIVE) H Urine Nitrite Negative (NEGATIVE) Urine Bilirubin Negative (NEGATIVE) Urine Urobilinogen Normal MG/DL (0.0-1.0) Urine Leukocyte Esterase Negative (NEGATIVE) Urine RBC 2-4 /HPF (0 - 0) H Urine WBC 0-2 /HPF (0 - 0) Urine Squamous Epithelial Cells Occasional /LPF Urine Bacteria Occasional /HPF (NONE) Urine Opiates Screen Negative (NEGATIVE) Urine Barbiturates Screen Negative (NEGATIVE) Phencyclidine (PCP) Screen Negative (NEGATIVE) Urine Amphetamines Screen Positive (NEGATIVE) H Urine Benzodiazepines Screen Negative (NEGATIVE) Urine Cocaine Screen Negative (NEGATIVE) Urine Marijuana (THC) Screen Negative (NEGATIVE) White Blood Count 4.1 K/UL (4.8-10.8) L Red Blood Count 3.39 M/UL (4.70-6.10) L Hemoglobin 9.4 G/DL (14.2-18.0) L Hematocrit 28.9 % (42.0-52.0) L Mean Corpuscular Volume 85 FL (80-99) Mean Corpuscular Hemoglobin 27.6 PG (27.0-31.0) Mean Corpuscular Hemoglobin Concent 32.4 G/DL (32.0-36.0) Red Cell Distribution Width 15.1 % (11.6-14.8) H Platelet Count 51 K/UL (150-450) L Mean Platelet Volume 6.8 FL (6.5-10.1) Neutrophils (%) (Auto) % (45.0-75.0) Lymphocytes (%) (Auto) % (20.0-45.0) Monocytes (%) (Auto) % (1.0-10.0) Eosinophils (%) (Auto) % (0.0-3.0) Basophils (%) (Auto) % (0.0-2.0) Differential Total Cells Counted 100 Neutrophils % (Manual) 49 % (45-75) Lymphocytes % (Manual) 48 % (20-45) H Monocytes % (Manual) 3 % (1-10) Eosinophils % (Manual) 0 % (0-3) Basophils % (Manual) 0 % (0-2) Band Neutrophils 0 % (0-8) Platelet Estimate Decreased L Platelet Morphology Normal Hypochromasia 1+ Anisocytosis 1+ Sodium Level 143 MMOL/L (136-145) Potassium Level 4.1 MMOL/L (3.5-5.1) Chloride Level 111 MMOL/L (98-107) H Carbon Dioxide Level 20 MMOL/L (21-32) L Anion Gap 12 mmol/L (5-15) Blood Urea Nitrogen 22 mg/dL (7-18) H Creatinine 1.0 MG/DL (0.55-1.30) Estimat Glomerular Filtration Rate > 60 mL/min (>60) Glucose Level 110 MG/DL (74-106) H Calcium Level 7.9 MG/DL (8.5-10.1) L Iron Level 37 ug/dL (50-175) L Total Iron Binding Capacity 308 ug/dL (250-450) Percent Iron Saturation 12 % (15-50) L Unsaturated Iron Binding 271 ug/dL (112-346) Ferritin 39 NG/ML (8-388) Vitamin B12 Level 420 PG/ML (193-986) HIV (1&2) Antibody Rapid Pending Hepatitis A IgM Antibody Pending Hepatitis B Surface Antigen Pending Hepatitis B Core IgM Antibody Pending Hepatitis C Antibody Pending Height (Feet): 5 Height (Inches): 11.00 Weight (Pounds): 195 Medications Current Medications Medications (Trade) Dose Ordered Sig/Diaz Route PRN Reason Start Time Stop Time Status Last Admin Dose Admin Gemfibrozil (Lopid) 600 mg TWICE A DAY ORAL 06/23/19 22:00 07/23/19 21:59 06/24/19 08:55 Hydromorphone HCl (Dilaudid) 1 mg Q4H PRN IVP For Pain 06/23/19 22:15 06/30/19 22:14 06/24/19 08:55 Lacosamide (Vimpat) 200 mg Q12HR ORAL 06/23/19 21:00 07/23/19 20:59 06/24/19 08:57 Levetiracetam (Keppra) 1,750 mg Q12HR ORAL 06/23/19 21:00 07/23/19 20:59 06/24/19 08:57 Metformin HCl (Glucophage) 850 mg BID ORAL 06/23/19 21:00 07/23/19 20:59 06/24/19 08:58 Patient Own Medication (Patient's Own Med) 1 ea BID ORAL 06/23/19 23:00 07/23/19 22:59 06/24/19 08:58 Patient Own Medication (Patient's Own Med) 1 ea BIDPC ORAL 06/23/19 23:00 07/23/19 22:59 06/24/19 09:02 Patient Own Medication (Patient's Own Med) 1 ea DAILY ORAL 06/24/19 09:00 07/24/19 08:59 06/24/19 09:00 Patient Own Medication (Patient's Own Med) 1 ea DAILY ORAL 06/24/19 09:00 07/24/19 08:59 06/24/19 09:01 Rifaximin (Xifaxan) 550 mg EVERY 12 HOURS ORAL 06/23/19 21:00 06/30/19 20:59 06/24/19 08:56 Topiramate (Topamax) 75 mg EVERY 12 HOURS ORAL 06/23/19 21:00 07/23/19 20:59 06/24/19 08:55 Voriconazole (Vfend) 200 mg EVERY 12 HOURS ORAL 06/23/19 22:00 06/24/19 21:59 06/24/19 08:57 Assessment/Plan Assessment/Plan: (1) HIV/AIDS (2) Peripheral Neuropathy seen dictated Angelito Doe Jun 24, 2019 09:47
[2019-06-24 12:00] VITALS: BP 123/77
--- NOTE | 2019-06-24 13:30 | History and Physical Report ---
DATE AND TIME SEEN: On 06/23/2019 at 3 p.m. CONSULTANTS: 1. Dr. Wells. 2. Jose Liang M.D. 3. Madhu Guevara M.D. CHIEF COMPLAINT: Seizure and low back pain. HISTORY OF PRESENT ILLNESS: This is a 44-year-old male, who lives at home, presents with recurrent seizure this morning. Last one was two months ago. He does have a history of seizure and takes seizure medications. Currently, calm in bed. Slight back pain. No complaint otherwise. REVIEW OF SYSTEMS: No chest pain or shortness of breath. No nausea, vomiting, or diarrhea. PAST MEDICAL HISTORY: Seizure and history of fungal meningitis. PAST SURGICAL HISTORY: None. ALLERGIES: Sulfa and morphine. MEDICATIONS: Include hydromorphone, levetiracetam, lorazepam, and ketorolac. SOCIAL HISTORY: Positive smoke. Positive alcohol. No intravenous drug abuse. FAMILY HISTORY: Noncontributory. PHYSICAL EXAMINATION: GENERAL: Calm, slightly anxious in bed, oriented x3, in no acute distress. VITAL SIGNS: Temperature 97, pulse 80, respirations 20, and blood pressure 114/76. CARDIOVASCULAR: No murmur. LUNGS: Distant and clear. ABDOMEN: Bowel sounds positive. Nontender. Nondistended. EXTREMITIES: No cyanosis, clubbing, or edema. NEUROLOGIC: The patient moves all extremities, slightly weak. LABORATORY AND DIAGNOSTIC DATA: Labs at this time show hemoglobin and hematocrit 9.5/29 and platelets 51,000, thrombocytopenia. BMP shows chloride 109, CO2 19, BUN 23, glucose 129. Urinalysis is 2+ blood, 3+ protein. Urine tox is positive amphetamines. ASSESSMENT: 1. Seizure. 2. Drug abuse. 3. Thrombocytopenia. 4. Low back pain. 5. Anemia. 6. History of fungal meningitis. PLAN: 1. Seizure control. 2. Pain control. 3. PT, OT and dietary followup. 4. Resume home medications. 5. Detox. 6. We will add Dr. Johnson for hematology evaluation. Mc Ernandez D.O. DR: SONIA JOB#: [id number] CC:
--- NOTE | 2019-06-24 15:41 | NUR ---
CASE MANAGEMENT:REVIEW 44 YR OLD MALE BIBA FROM BUS STOP CC: FELL AT BUS STOP SI: UNCONTROLLED SEIZURE. LUMBAR CONTUSION OPIATE DEPENDENCE 97.7 74 17 152/95 100% ON RA PLT-51 BUN+23 TCK+775 URINE(+) AMPHETAMINES IS: IV ATIVAN 1L NS BOLUS IV KEPPRA IV TORADOL CT SPINE CHEST XRAY : TO TELEMETRY
[2019-06-24 16:00] VITALS: BP 130/80
--- NOTE | 2019-06-24 19:15 | Progress Note ---
DATE: 06/24/2019 APPROXIMATE TIME: 2 p.m. SUBJECTIVE: Computer is down, therefore dictated from chart. The patient is calm in bed, no complaint. OBJECTIVE: VITAL SIGNS: Pending. CARDIOVASCULAR: No murmur. LUNGS: Distant and clear. ABDOMEN: Bowel sounds positive. Nontender. Nondistended. EXTREMITIES: No cyanosis or edema. LABORATORY DATA: Labs are pending. ASSESSMENT: 1. Seizure. 2. Low back pain. 3. Anemia. 4. Drug abuse. 5. Shoulder pain. PLAN: 1. Seizure control. 2. Pain control. 3. Dietary followup. 4. Neuro and ortho followup. Mc Ernandez D.O. DR: FOX JOB#: [id number] CC:
--- NOTE | 2019-06-24 19:30 | NUR ---
HAND-OFF: Report given to DUSTIN Salinas. Pt. in stable condition. Plan of care endorsed.
[2019-06-24 20:00] VITALS: BP 135/89
--- NOTE | 2019-06-24 20:00 | NUR ---
NURSE NOTES: RECEIVED PATIENT LYING IN BED, AWAKE, ALERT/ORIENTED X4, VERBALLY RESPONSIVE, AT BEDSIDE, CURRENT COMPLAINT OF PAIN TO LEFT SHOULDER, 10/, EDUCATED PATIENT ON PAIN MANAGEMENT, VERBALIZED UNDERSTANDING. NO SIGNS AND SYMPTOMS OF ACUTE CARDIO RESPIRATORY DISTRESS/SHORTNESS OF BREATH, SP02 96% ON ROOM AIR, SINUS RHYTHM ON COMMUNITY RELATIONS REP. PORT A CATH TO RIGHT CHEST WALL, FLUSHING WELL, NO REDNESS NOTED TO SITE. ABDOMEN SOFT/NON DISTENDED, AUDIBLE BOWEL SOUNDS, BATHROOM PRIVILEGES WITH ASSISTANCE. SIDE RAILS UP X2, BED IN LOWEST POSITION FOR SAFETY, ENCOURAGED PATIENT TO UTILIZE CALL LIGHT FOR ASSISTANCE, VERBALIZED UNDERSTANDING. PM CARE PROVIDED. CONTINUE WITH CURRENT PLAN OF CARE. NAD.
--- NOTE | 2019-06-24 20:45 | Progress Note ---
NOTE: INCOMPLETE DICTATION SUBJECTIVE: The patient is sleeping in bed, calm. No complaints. Mc Ernandez D.O. DR: BRITNEY JOB#: [id number] CC:
[2019-06-25] VITALS: BP 125/57
[2019-06-25 04:00] VITALS: BP 142/83
[2019-06-25] MEDS: HYDROmorphone 1mg/ml Carpuject IVP PRN ×4 (04:16→21:02)
--- NOTE | 2019-06-25 06:25 | NUR ---
NURSE NOTES: RESTED WELL, NO SIGNIFICANT CHANGE OF CONDITION NOTED THROUGHOUT THE NIGHT. SAFETY MAINTAINED. NAD.
[2019-06-25 07:01] LABS: HEMATOCRIT 26.8 % (42.0-52.0); HEMOGLOBIN 8.9 G/DL (14.2-18.0); MEAN CORPUSCULAR VOLUME 85 FL (80-99); PLATELET COUNT 49 K/UL (150-450); RED BLOOD COUNT 3.17 M/UL (4.70-6.10); RED CELL DISTRIBUTION WIDTH 15.1 % (11.6-14.8); WHITE BLOOD COUNT 2.9 K/UL (4.8-10.8)
--- NOTE | 2019-06-25 07:28 | NUR ---
HAND-OFF: Report given to HUBER GARCIA.
--- NOTE | 2019-06-25 07:28 | NUR ---
NURSE NOTES: Nurse report given by DUSTIN Kent. Patient's awake and sitting in bed high duque position and eating breakfast. AAO x 4, denies chest pain, no s/s of distress or SOB. Bed low and locked, call light within reach, side rails x 3, padded, seizure precaution applied, bed alarm is applied. IV is saline locked, patent and asymptomatic. Will continue to monitor.
[2019-06-25 08:00] VITALS: BP 144/89
--- NOTE | 2019-06-25 08:51 | General Progress Note ---
Assessment/Plan Problem List: (1) Acute bilateral low back pain ICD Codes: M54.5 - Low back pain SNOMED: 363523117 (2) Drug abuse ICD Codes: F19.10 - Other psychoactive substance abuse, uncomplicated SNOMED: 22624774 (3) Anemia ICD Codes: D64.9 - Anemia, unspecified SNOMED: 749665800 (4) Leukopenia ICD Codes: D72.819 - Decreased white blood cell count, unspecified SNOMED: 00126427, 596805862 (5) Seizure disorder ICD Codes: G40.909 - Epilepsy, unspecified, not intractable,without status epilepticus SNOMED: 673108093 Status: stable, progressing Assessment/Plan: pt diet pain control abx cbc bmp am Subjective Constitutional: Reports: weakness Allergies: Coded Allergies: SULFA (SULFONAMIDE ANTIBIOTICS) (Verified Allergy, Mild, 06/21/09) MORPHINE (Verified Allergy, Unknown, 10/13/14) ALLERGIC TO LIQUID MORPHINE ONLY PER S.O. Uncoded Allergies: SULFA (Allergy, Unknown, 06/23/19) All Systems: reviewed and negative except above Subjective calm in bed Objective Last 24 Hour Vital Signs Date Time Temp Pulse Resp B/P (MAP) Pulse Ox O2 Delivery O2 Flow Rate FiO2 06/25/19 04:46 97.7 06/25/19 04:00 109 06/25/19 04:00 97.7 109 19 142/83 (102) 100 06/25/19 00:00 97.2 90 18 125/57 (79) 95 06/25/19 00:00 90 06/24/19 21:00 Room Air Room Air 06/24/19 20:00 98.6 92 18 135/89 (104) 97 06/24/19 20:00 83 06/24/19 16:00 98.4 65 18 130/80 (97) 95 06/24/19 16:00 90 06/24/19 12:00 98.6 89 18 123/77 (92) 100 06/24/19 12:00 90 06/24/19 09:00 Room Air Room Air Intake and Output 06/24/19 06/25/19 19:00 07:00 Intake Total 280 ml 360 ml Output Total 900 ml 600 ml Balance -620 ml -240 ml Intake Oral 280 ml 360 ml Output Urine Total 900 ml 600 ml # Voids 3 4 Laboratory Tests 06/25/19 06:00: White Blood Count 2.9L, Red Blood Count 3.17L, Hemoglobin 8.9L, Hematocrit 26.8L , Mean Corpuscular Volume 85, Mean Corpuscular Hemoglobin 28.0, Mean Corpuscular Hemoglobin Concent 33.1, Red Cell Distribution Width 15.1H, Platelet Count 49L, Mean Platelet Volume 6.5, Neutrophils (%) (Auto) , Lymphocytes (%) (Auto) , Monocytes (%) (Auto) , Eosinophils (%) (Auto) , Basophils (%) (Auto) , Differential Total Cells Counted 100, Neutrophils % ( Manual) 45, Lymphocytes % (Manual) 45, Monocytes % (Manual) 8, Eosinophils % ( Manual) 2, Basophils % (Manual) 0, Band Neutrophils 0, Platelet Estimate DecreasedL, Platelet Morphology Normal, Anisocytosis 1+ Height (Feet): 5 Height (Inches): 11.00 Weight (Pounds): 195 General Appearance: lethargic EENT: normal ENT inspection Neck: normal alignment Cardiovascular: normal peripheral pulses, normal rate, regular rhythm Respiratory/Chest: chest wall non-tender, lungs clear, normal breath sounds Abdomen: normal bowel sounds, non tender, soft Extremities: normal inspection Edema: no edema noted Arm (L), no edema noted Arm (R), no edema noted Leg (L), no edema noted Leg (R), no edema noted Pedal (L), no edema noted Pedal (R), no edema noted Generalized Neurologic: motor weakness Skin: normal pigmentation, warm/dry Mc Ernandez DO Jun 25, 2019 08:51
[2019-06-25] MEDS: Lacosamide 50mg tablet ORAL SCH ×2 (09:15→21:00)
[2019-06-25] MEDS: Topiramate 25mg tab ORAL SCH ×2 (09:15→21:00)
[2019-06-25] MEDS: ATAZANAVIR 300 MG ORAL SCH (09:16)
--- NOTE | 2019-06-25 09:16 | Hematology/Onc Progress Note ---
Assessment/Plan Assessment/Plan Assessment and Recs: # Thrombocytopenia, severe -- plt approx 51k at this time, reviewed prior counts and imaging, does have a history of cirrhosis and hiv --> hep panel negative --> hiv prelim positive --> transfuse as needed, hgb goal >7 --> no bleeding, no hemolysis is seen --> path smear has been reviewed --> meds noted # Anemia of iron deficiency, unspecified rule out gi bleed --> obtain a anemia panel, ferritin 39 --> hgb goal is >7, transfuse as needed --> trend CBC daily to make sure no major acute drop --> no evidence of hemolysis noted --> hgb trend: 8.9 # DVt of the lower ext --> as long as is not bleeding, continue xarelto --> okay to monitor on xarelto, has been restarted # Questionable seizure, no acute seizures overnight. --> per neuro eval --> meds restarted antiepilecptics # Human immunodeficiency virus. --> id eval prn # Significant narcotic dependence --> restarted meds --> per Dr. Crump # Obesity --> recommend weight loss # Hypoglycemia --> improved # Diabetes mellitus --> iss and accuchecks qac and qhs Appreciate consultation and sara Rn Subjective Allergies: Coded Allergies: SULFA (SULFONAMIDE ANTIBIOTICS) (Verified Allergy, Mild, 06/21/09) MORPHINE (Verified Allergy, Unknown, 10/13/14) ALLERGIC TO LIQUID MORPHINE ONLY PER S.O. Uncoded Allergies: SULFA (Allergy, Unknown, 06/23/19) Subjective 06/25: awake and alert, no acute events, prelim hiv positive, hep panel negative Objective Objective Current Medications Medications (Trade) Dose Ordered Sig/Diaz Route PRN Reason Start Time Stop Time Status Last Admin Dose Admin Gemfibrozil (Lopid) 600 mg TWICE A DAY ORAL 06/23/19 22:00 07/23/19 21:59 06/24/19 18:29 Hydromorphone HCl (Dilaudid) 1 mg Q4H PRN IVP For Pain 06/23/19 22:15 06/30/19 22:14 06/25/19 04:16 Lacosamide (Vimpat) 200 mg Q12HR ORAL 06/23/19 21:00 07/23/19 20:59 06/24/19 20:11 Levetiracetam (Keppra) 1,750 mg Q12HR ORAL 06/23/19 21:00 07/23/19 20:59 06/24/19 20:10 Metformin HCl (Glucophage) 850 mg BID ORAL 06/23/19 21:00 07/23/19 20:59 06/24/19 18:29 Patient Own Medication (Patient's Own Med) 1 ea BID ORAL 06/23/19 23:00 07/23/19 22:59 06/24/19 18:29 Patient Own Medication (Patient's Own Med) 1 ea BIDPC ORAL 06/23/19 23:00 07/23/19 22:59 06/24/19 18:29 Patient Own Medication (Patient's Own Med) 1 ea DAILY ORAL 06/24/19 09:00 07/24/19 08:59 06/24/19 09:00 Patient Own Medication (Patient's Own Med) 1 ea DAILY ORAL 06/24/19 09:00 07/24/19 08:59 06/24/19 09:01 Rifaximin (Xifaxan) 550 mg EVERY 12 HOURS ORAL 06/23/19 21:00 06/30/19 20:59 06/24/19 20:11 Topiramate (Topamax) 75 mg EVERY 12 HOURS ORAL 06/23/19 21:00 07/23/19 20:59 06/24/19 20:11 Voriconazole (Vfend) 200 mg EVERY 12 HOURS ORAL 06/23/19 22:00 06/25/19 21:59 06/24/19 20:11 Last 24 Hour Vital Signs Date Time Temp Pulse Resp B/P (MAP) Pulse Ox O2 Delivery O2 Flow Rate FiO2 06/25/19 04:46 97.7 06/25/19 04:00 109 06/25/19 04:00 97.7 109 19 142/83 (102) 100 06/25/19 00:00 97.2 90 18 125/57 (79) 95 06/25/19 00:00 90 06/24/19 21:00 Room Air Room Air 06/24/19 20:00 98.6 92 18 135/89 (104) 97 06/24/19 20:00 83 06/24/19 16:00 98.4 65 18 130/80 (97) 95 06/24/19 16:00 90 06/24/19 12:00 98.6 89 18 123/77 (92) 100 06/24/19 12:00 90 06/24/19 09:00 Room Air Room Air 06/24/19 08:00 98.1 82 18 144/87 (106) 100 06/24/19 08:00 86 06/24/19 04:00 89 06/24/19 04:00 98.2 92 19 143/87 (105) 100 06/24/19 00:00 97.7 78 19 131/87 (102) 97 06/24/19 00:00 84 06/23/19 21:00 Room Air Room Air 06/23/19 20:00 86 06/23/19 20:00 97.7 85 18 117/85 (96) 98 06/23/19 16:00 98.1 89 20 119/72 (88) 97 06/23/19 14:35 97.7 87 20 114/76 (89) 98 06/23/19 14:34 82 06/23/19 14:33 Room Air 06/23/19 14:17 97.5 76 19 147/97 100 Room Air 06/23/19 11:20 97.7 06/23/19 10:54 97.7 70 16 152/101 100 Room Air 06/23/19 10:08 97.7 Intake and Output 06/24/19 06/25/19 19:00 07:00 Intake Total 280 ml 360 ml Output Total 900 ml 600 ml Balance -620 ml -240 ml Intake Oral 280 ml 360 ml Output Urine Total 900 ml 600 ml # Voids 3 4 Labs Test 06/23/19 09:34 06/23/19 10:37 06/24/19 00:00 06/24/19 04:40 White Blood Count 4.8 K/UL (4.8-10.8) 4.1 K/UL (4.8-10.8) Red Blood Count 3.42 M/UL (4.70-6.10) 3.39 M/UL (4.70-6.10) Hemoglobin 9.5 G/DL (14.2-18.0) 9.4 G/DL (14.2-18.0) Hematocrit 29.0 % (42.0-52.0) 28.9 % (42.0-52.0) Mean Corpuscular Volume 85 FL (80-99) 85 FL (80-99) Mean Corpuscular Hemoglobin 27.8 PG (27.0-31.0) 27.6 PG (27.0-31.0) Mean Corpuscular Hemoglobin Concent 32.9 G/DL (32.0-36.0) 32.4 G/DL (32.0-36.0) Red Cell Distribution Width 15.2 % (11.6-14.8) 15.1 % (11.6-14.8) Platelet Count 51 K/UL (150-450) 51 K/UL (150-450) Mean Platelet Volume 6.0 FL (6.5-10.1) 6.8 FL (6.5-10.1) Neutrophils (%) (Auto) % (45.0-75.0) % (45.0-75.0) Lymphocytes (%) (Auto) % (20.0-45.0) % (20.0-45.0) Monocytes (%) (Auto) % (1.0-10.0) % (1.0-10.0) Eosinophils (%) (Auto) % (0.0-3.0) % (0.0-3.0) Basophils (%) (Auto) % (0.0-2.0) % (0.0-2.0) Differential Total Cells Counted 100 100 Neutrophils % (Manual) 62 % (45-75) 49 % (45-75) Lymphocytes % (Manual) 30 % (20-45) 48 % (20-45) Monocytes % (Manual) 8 % (1-10) 3 % (1-10) Eosinophils % (Manual) 0 % (0-3) 0 % (0-3) Basophils % (Manual) 0 % (0-2) 0 % (0-2) Band Neutrophils 0 % (0-8) 0 % (0-8) Platelet Estimate Decreased Decreased Platelet Morphology Normal Normal Anisocytosis 1+ 1+ Sodium Level 140 MMOL/L (136-145) 143 MMOL/L (136-145) Potassium Level 4.0 MMOL/L (3.5-5.1) 4.1 MMOL/L (3.5-5.1) Chloride Level 109 MMOL/L (98-107) 111 MMOL/L (98-107) Carbon Dioxide Level 19 MMOL/L (21-32) 20 MMOL/L (21-32) Anion Gap 12 mmol/L (5-15) 12 mmol/L (5-15) Blood Urea Nitrogen 23 mg/dL (7-18) 22 mg/dL (7-18) Creatinine 1.0 MG/DL (0.55-1.30) 1.0 MG/DL (0.55-1.30) Estimat Glomerular Filtration Rate > 60 mL/min (>60) > 60 mL/min (>60) Glucose Level 129 MG/DL (74-106) 110 MG/DL (74-106) Calcium Level 7.9 MG/DL (8.5-10.1) 7.9 MG/DL (8.5-10.1) Total Bilirubin 2.5 MG/DL (0.2-1.0) Direct Bilirubin 0.5 MG/DL (0.0-0.3) Aspartate Amino Transf (AST/SGOT) 56 U/L (15-37) Alanine Aminotransferase (ALT/SGPT) 28 U/L (12-78) Alkaline Phosphatase 203 U/L (46-116) Total Creatine Kinase 775 U/L (26-308) Troponin I 0.001 ng/mL (0.000-0.056) Total Protein 6.9 G/DL (6.4-8.2) Albumin 3.7 G/DL (3.4-5.0) Globulin 3.2 g/dL Albumin/Globulin Ratio 1.2 (1.0-2.7) Acetaminophen Level < 2 MCG/ML (10-30) Serum Alcohol < 3 mg/dL Urine Color Yellow Urine Appearance Clear Urine pH 6 (4.5-8.0) Urine Specific [place] 1.010 (1.005-1.035) Urine Protein 3+ (NEGATIVE) Urine Glucose (UA) Negative (NEGATIVE) Urine Ketones Negative (NEGATIVE) Urine Blood 2+ (NEGATIVE) Urine Nitrite Negative (NEGATIVE) Urine Bilirubin Negative (NEGATIVE) Urine Urobilinogen Normal MG/DL (0.0-1.0) Urine Leukocyte Esterase Negative (NEGATIVE) Urine RBC 2-4 /HPF (0 - 0) Urine WBC 0-2 /HPF (0 - 0) Urine Squamous Epithelial Cells Occasional /LPF Urine Bacteria Occasional /HPF (NONE) Urine Opiates Screen Negative (NEGATIVE) Urine Barbiturates Screen Negative (NEGATIVE) Phencyclidine (PCP) Screen Negative (NEGATIVE) Urine Amphetamines Screen Positive (NEGATIVE) Urine Benzodiazepines Screen Negative (NEGATIVE) Urine Cocaine Screen Negative (NEGATIVE) Urine Marijuana (THC) Screen Negative (NEGATIVE) Hypochromasia 1+ Iron Level 37 ug/dL (50-175) Total Iron Binding Capacity 308 ug/dL (250-450) Percent Iron Saturation 12 % (15-50) Unsaturated Iron Binding 271 ug/dL (112-346) Ferritin 39 NG/ML (8-388) Vitamin B12 Level 420 PG/ML (193-986) HIV (1&2) Antibody Rapid Preliminary positive Test 06/24/19 08:10 06/25/19 06:00 Hepatitis A IgM Antibody Negative (Negative) Hepatitis B Surface Antigen Negative (Negative) Hepatitis B Core IgM Antibody Negative (Negative) Hepatitis C Antibody <0.1 s/co ratio White Blood Count 2.9 K/UL (4.8-10.8) Red Blood Count 3.17 M/UL (4.70-6.10) Hemoglobin 8.9 G/DL (14.2-18.0) Hematocrit 26.8 % (42.0-52.0) Mean Corpuscular Volume 85 FL (80-99) Mean Corpuscular Hemoglobin 28.0 PG (27.0-31.0) Mean Corpuscular Hemoglobin Concent 33.1 G/DL (32.0-36.0) Red Cell Distribution Width 15.1 % (11.6-14.8) Platelet Count 49 K/UL (150-450) Mean Platelet Volume 6.5 FL (6.5-10.1) Neutrophils (%) (Auto) % (45.0-75.0) Lymphocytes (%) (Auto) % (20.0-45.0) Monocytes (%) (Auto) % (1.0-10.0) Eosinophils (%) (Auto) % (0.0-3.0) Basophils (%) (Auto) % (0.0-2.0) Differential Total Cells Counted 100 Neutrophils % (Manual) 45 % (45-75) Lymphocytes % (Manual) 45 % (20-45) Monocytes % (Manual) 8 % (1-10) Eosinophils % (Manual) 2 % (0-3) Basophils % (Manual) 0 % (0-2) Band Neutrophils 0 % (0-8) Platelet Estimate Decreased Platelet Morphology Normal Anisocytosis 1+ Height (Feet): 5 Height (Inches): 11.00 Weight (Pounds): 195 Objective PE Vitals noted Gen: nad, A+O x3 Pulm: ctab, no cwr CV: rrr, no mgr Abd: sft, nt, nd Ext: no cce Wes Johnson MD Jun 25, 2019 09:16
--- NOTE | 2019-06-25 11:24 | NUR ---
P.T Note: P.T evaluation completed and tx initiated. Please refer to P.T evaluation for current functional status. Pt received in semi duque position, present. Pt reports generalized weakness and pain on the L shoulder blade and R hip and posterior thigh 5-8/10 as rated. Pt required currently require MIN A x 1 extended time to initiate and complete supine to/from sitting and sitting to/from standing transitions. Pt was able to ambulate and tolerate 25 ft using the FWW with CGA x 1. Overall poor activity tolerance attributed to generalized weakness and pain. Skilled P.T service is warranted to improve strength and activity tolerance for increased mobility independence and safety. Recommend FWW and home at [place].
[2019-06-25 12:00] VITALS: BP 145/80
--- NOTE | 2019-06-25 12:30 | Consultation ---
DATE OF CONSULTATION: 06/24/2019 PAIN MANAGEMENT CONSULTATION CONSULTING PHYSICIAN: Madhu Guevara M.D. REFERRING PHYSICIAN: Mc Ernandez D.O. PHYSICIAN MANUFACTURING JOB TITLES: Sarah Bal CHIEF COMPLAINT: Body pain. HISTORY OF PRESENT ILLNESS: This is a 44-year-old male who is being seen on the telemetry floor of [facility] for initial pain management consultation. The patient has been admitted under the care of Dr. Ernandez due to seizure disorder. He has a history of HIV/AIDS and meningitis and was started on Dilaudid 1mg IV Q4H PRN severe pain which has allowed him to tolerate the pain. PAST MEDICAL HISTORY: History of meningitis, HIV/AIDS, and seizure disorder. PAST SURGICAL HISTORY: Gallbladder removal and brain surgery. SOCIAL HISTORY: He is a smoker of tobacco and drinks alcohol. Denies drug abuse. ALLERGIES: Sulfa MEDICATIONS: clindamycin, Truvada, Zyloprim, Nexium, Lasix, Neurontin, Motrin, lisinopril, metformin, prednisone, Estrace, Xarelto, Xanax, [place], Zofran, Percocet, Zanaflex, and Keppra. REVIEW OF SYSTEMS: Denies rash, fever, chills, sweating, dizziness, drowsiness, blurred vision, sore throat, or change in weight. No shortness of breath or chest pain. No nausea, vomiting, or blood in the stool or urine. No bowel or bladder incontinence. No dysuria. PHYSICAL EXAMINATION: GENERAL: Alert, oriented. VITAL SIGNS: Stable HEENT: PERRLA. NECK: Range of motion is full in all directions. No tenderness to paracervical muscles. No adenopathy. LUNGS: Decreased breath sounds bilaterally. HEART: S1 and S2 regular. ABDOMEN: Soft and nontender. EXTREMITIES: No cyanosis, no clubbing, no edema. Sensory is reduced. Reflexes are not obtainable. No adenopathy. ASSESSMENT AND PLAN: This is a 44-year-old male with HIV/AIDS and peripheral neuropathy. The patient will be continued on Dilaudid 1 mg IV every four hours as needed for severe pain. Thank you very much for the courtesy of this consultation. Madhu Guevara M.D. KIERRA Bal DR: DELIA JOB#: [id number] CC: BRYANT
--- NOTE | 2019-06-25 12:41 | General Progress Note ---
Assessment/Plan Assessment/Plan: (1) HIV/AIDS (2) Peripheral Neuropathy Patient will be continued on Dilaudid as needed. D/w Dr. Guevara and he concurred. Subjective Date patient seen: Jun 25, 2019 Time patient seen: 12:30 - pm Constitutional: Reports: weakness HEENT: Reports: no symptoms Cardiovascular: Reports: no symptoms Respiratory: Reports: no symptoms Gastrointestinal/Abdominal: Reports: no symptoms Genitourinary: Reports: no symptoms Neurologic/Psychiatric: Reports: numbness, weakness Endocrine: Reports: no symptoms Hematologic/Lymphatic: Reports: no symptoms Allergies: Coded Allergies: SULFA (SULFONAMIDE ANTIBIOTICS) (Verified Allergy, Mild, 06/21/09) MORPHINE (Verified Allergy, Unknown, 10/13/14) ALLERGIC TO LIQUID MORPHINE ONLY PER S.O. Uncoded Allergies: SULFA (Allergy, Unknown, 06/23/19) Subjective Patient is in bed and family in room. Pain has been at a moderate level and tolerated on the Dilaudid. No new complaints at this time. Objective Last 24 Hour Vital Signs Date Time Temp Pulse Resp B/P (MAP) Pulse Ox O2 Delivery O2 Flow Rate FiO2 06/25/19 11:48 97.5 06/25/19 09:00 Room Air Room Air 06/25/19 08:00 81 06/25/19 08:00 97.5 81 19 144/89 (107) 100 06/25/19 04:00 109 06/25/19 04:00 97.7 109 19 142/83 (102) 100 06/25/19 00:00 97.2 90 18 125/57 (79) 95 06/25/19 00:00 90 06/24/19 21:00 Room Air Room Air 06/24/19 20:00 98.6 92 18 135/89 (104) 97 06/24/19 20:00 83 06/24/19 16:00 98.4 65 18 130/80 (97) 95 06/24/19 16:00 90 Intake and Output 06/24/19 06/25/19 19:00 07:00 Intake Total 280 ml 500 ml Output Total 900 ml 600 ml Balance -620 ml -100 ml Intake Oral 280 ml 500 ml Output Urine Total 900 ml 600 ml # Voids 3 4 Laboratory Tests 06/25/19 06:00: White Blood Count 2.9L, Red Blood Count 3.17L, Hemoglobin 8.9L, Hematocrit 26.8L , Mean Corpuscular Volume 85, Mean Corpuscular Hemoglobin 28.0, Mean Corpuscular Hemoglobin Concent 33.1, Red Cell Distribution Width 15.1H, Platelet Count 49L, Mean Platelet Volume 6.5, Neutrophils (%) (Auto) , Lymphocytes (%) (Auto) , Monocytes (%) (Auto) , Eosinophils (%) (Auto) , Basophils (%) (Auto) , Differential Total Cells Counted 100, Neutrophils % ( Manual) 45, Lymphocytes % (Manual) 45, Monocytes % (Manual) 8, Eosinophils % ( Manual) 2, Basophils % (Manual) 0, Band Neutrophils 0, Platelet Estimate DecreasedL, Platelet Morphology Normal, Anisocytosis 1+ 06/25/19 06:30: Rapid Plasma Reagin [Pending], Treponema pallidum Ab (FTA-ABS) [Pending] Height (Feet): 5 Height (Inches): 11.00 Weight (Pounds): 195 General Appearance: no apparent distress, alert EENT: PERRL/EOMI Neck: non-tender, supple Cardiovascular: normal rate, regular rhythm Respiratory/Chest: lungs clear, normal breath sounds Abdomen: non tender, soft Extremities: non-tender Edema: no edema noted Generalized Neurologic: alert, oriented x 3 Skin: warm/dry Angelito Doe Jun 25, 2019 12:41
--- NOTE | 2019-06-25 12:57 | Consultation ---
History of Present Illness General Date patient seen: Jun 25, 2019 Chief Complaint: Multiple Trauma/Fall Present Illness HPI 44 y/o M with hx of HIV/AIDS (dx 1992), HTN, s/p cholecystectomy, DVT/PE s/p IVC filter, coccidioidal meningitis 2012, S aureus PNA 2013, syphilis ~20 yrs ago, seizure disorder presented to ED on 06/23 with insomnia, decreased appetite , increased back pain radiating to R leg, headache and with a probable seizure episode (had black out speel, bit tongue and had incontinence). Patient was found at a park bench and paramedics were called. Upon admission noted to be pancytopenic and + UDS for methamphetamine. Patient has been having some confusion and memory loss for some time; daily headaches Denied diplopia, hearing loss, tinnitus, vomiting, f/c, sore throat, CP, dysuria , diarrhea, abd pain, SOB, rash . +nausea Reported CD4 250 and VL undetectable Allergies: Coded Allergies: SULFA (SULFONAMIDE ANTIBIOTICS) (Verified Allergy, Mild, 06/21/09) MORPHINE (Verified Allergy, Unknown, 10/13/14) ALLERGIC TO LIQUID MORPHINE ONLY PER S.O. Uncoded Allergies: SULFA (Allergy, Unknown, 06/23/19) Medication History Scheduled Acyclovir* (Acyclovir*), Unknown Dose ORAL FIVE TIMES A DAY, (Reported) Clindamycin Hcl (Clindamycin Hcl), 300 MG ORAL THREE TIMES A DAY Clindamycin Hcl (Clindamycin Hcl), 300 MG ORAL THREE TIMES A DAY Dapsone* (Dapsone*), 100 MG ORAL DAILY, (Reported) Emtricitabine/Tenofovir (Truvada 200 mg-300 mg Tablet), 1 TAB ORAL DAILY, ( Reported) Escitalopram Oxalate (Escitalopram Oxalate*), 20 MG ORAL DAILY, (Reported) Esomeprazole Magnesium (Nexium), Unknown Dose ORAL DAILY, (Reported) Furosemide* (Lasix*), Unknown Dose ORAL DAILY, (Reported) Gabapentin* (Gabapentin*), 800 MG ORAL THREE TIMES A DAY, (Reported) Gemfibrozil* (Lopid*), Unknown Dose ORAL TWICE A DAY, (Reported) Ibuprofen* (Motrin*), 600 MG ORAL THREE TIMES A DAY Levetiracetam* (Levetiracetam*), 2,000 MG ORAL TWICE A DAY, (Reported) Lisinopril (Lisinopril*), 20 MG ORAL DAILY, (Reported) Metformin Hcl* (Metformin Hcl*), Unknown Dose ORAL BID, (Reported) Prednisone* (Prednisone*), 40 MG ORAL DAILY Raltegravir (Isentress), 400 MG ORAL EVERY 12 HOURS, (Reported) Rivaroxaban (Xarelto*), 20 MG ORAL DAILY, (Reported) Voriconazole* (Vfend*), 200 MG ORAL TWICE A DAY, (Reported) Scheduled PRN Diazepam* (Diazepam*), Unknown Dose ORAL Q6H PRN for ANXIETY, (Reported) Hydrocodone Bit/Acetaminophen 10-325* (Hydrocodon-Acetaminophn 10-325*), 1 TAB ORAL TID PRN for For Pain, (Reported) Hydrocodone Bit/Acetaminophen 5-325* (Dillingham 5-325*), 1 TAB ORAL Q6H PRN for For Pain Morphine Sulfate (Morphine Sulfate Cr), 15 MG PO BID PRN for For Pain, (Reported ) Ondansetron Odt* (Zofran Odt*), 4 MG ORAL Q6H PRN for Nausea & Vomiting Oxycodone/Acetaminophen 5-325* (Percocet 5-325 Mg Tablet*), 1 TAB ORAL Q6H PRN for For Pain Oxycodone/Acetaminophen 5-325* (Percocet 5-325 Mg Tablet*), 1 TAB ORAL Q4H PRN for For Pain Promethazine HCl (Promethegan), Unknown Dose BC Q6H PRN for Nausea & Vomiting, ( Reported) Tizanidine Hcl* (Zanaflex*), 4 MG ORAL QHS PRN for For Pain, (Reported) Miscellaneous Medications Levetiracetam (Keppra), Unknown Dose ORAL, (Reported) Sterling-3 Fatty Acids (Fish Oil), 1,000 MG PO, (Reported) Sildenafil Citrate (Viagra), Unknown Dose ORAL, (Reported) Patient History Healthcare decision maker Resuscitation status Advanced Directive on File Patient History Narrative Pmhx: as above Shx: reviewed Fhx: non contributory Review of Systems All Other Systems: negative except mentioned in HPI Physical Exam Physical Exam Narrative General Appearance: GCS 15, non-toxic, moderate distress Head: normocephalic Eyes: bilateral eye PERRL, bilateral eye EOMI, bilateral eye Scleral Injection ENT: moist mucus membranes - Lingual maceration right Neck: full range of motion, supple, no bony tend Respiratory: chest non-tender, lungs clear, normal breath sounds Cardiovascular #1: regular rate, rhythm Cardiovascular #2: 2+ radial (R) Gastrointestinal: normal inspection, normal bowel sounds, non tender, no mass, non-distended Musculoskeletal: decreased range of motion - Due to pain, no calf tenderness, tender - Lumbar area with possible point tenderness, other - Straight leg raise bilaterally increases back pain. Neurologic: alert, motor strength/tone normal, hospital security officer III-XII nml as tested, DTRs symmetric, oriented x3, sensory intact Psychiatric: anxious Skin: no rash, warm/dry Last 24 Hour Vital Signs Date Time Temp Pulse Resp B/P (MAP) Pulse Ox O2 Delivery O2 Flow Rate FiO2 06/25/19 11:48 97.5 06/25/19 09:00 Room Air Room Air 06/25/19 08:00 81 06/25/19 08:00 97.5 81 19 144/89 (107) 100 06/25/19 04:00 109 06/25/19 04:00 97.7 109 19 142/83 (102) 100 06/25/19 00:00 97.2 90 18 125/57 (79) 95 06/25/19 00:00 90 06/24/19 21:00 Room Air Room Air 06/24/19 20:00 98.6 92 18 135/89 (104) 97 06/24/19 20:00 83 06/24/19 16:00 98.4 65 18 130/80 (97) 95 06/24/19 16:00 90 Intake and Output 06/24/19 06/25/19 18:59 06:59 Intake Total 420 ml 360 ml Output Total 900 ml 600 ml Balance -480 ml -240 ml Intake Oral 420 ml 360 ml Output Urine Total 900 ml 600 ml # Voids 3 4 Laboratory Tests Test 06/25/19 06:00 06/25/19 06:30 White Blood Count 2.9 K/UL (4.8-10.8) L Red Blood Count 3.17 M/UL (4.70-6.10) L Hemoglobin 8.9 G/DL (14.2-18.0) L Hematocrit 26.8 % (42.0-52.0) L Mean Corpuscular Volume 85 FL (80-99) Mean Corpuscular Hemoglobin 28.0 PG (27.0-31.0) Mean Corpuscular Hemoglobin Concent 33.1 G/DL (32.0-36.0) Red Cell Distribution Width 15.1 % (11.6-14.8) H Platelet Count 49 K/UL (150-450) L Mean Platelet Volume 6.5 FL (6.5-10.1) Neutrophils (%) (Auto) % (45.0-75.0) Lymphocytes (%) (Auto) % (20.0-45.0) Monocytes (%) (Auto) % (1.0-10.0) Eosinophils (%) (Auto) % (0.0-3.0) Basophils (%) (Auto) % (0.0-2.0) Differential Total Cells Counted 100 Neutrophils % (Manual) 45 % (45-75) Lymphocytes % (Manual) 45 % (20-45) Monocytes % (Manual) 8 % (1-10) Eosinophils % (Manual) 2 % (0-3) Basophils % (Manual) 0 % (0-2) Band Neutrophils 0 % (0-8) Platelet Estimate Decreased L Platelet Morphology Normal Anisocytosis 1+ Rapid Plasma Reagin Pending Treponema pallidum Ab (FTA-ABS) Pending Height (Feet): 5 Height (Inches): 11.00 Weight (Pounds): 195 Medications Current Medications Medications (Trade) Dose Ordered Sig/Diaz Route PRN Reason Start Time Stop Time Status Last Admin Dose Admin Gemfibrozil (Lopid) 600 mg TWICE A DAY ORAL 06/23/19 22:00 07/23/19 21:59 06/25/19 09:16 Hydromorphone HCl (Dilaudid) 1 mg Q4H PRN IVP For Pain 06/23/19 22:15 06/30/19 22:14 06/25/19 11:09 Lacosamide (Vimpat) 200 mg Q12HR ORAL 06/23/19 21:00 07/23/19 20:59 06/25/19 09:15 Levetiracetam (Keppra) 1,750 mg Q12HR ORAL 06/23/19 21:00 07/23/19 20:59 06/25/19 09:15 Metformin HCl (Glucophage) 850 mg BID ORAL 06/23/19 21:00 07/23/19 20:59 06/25/19 09:16 Patient Own Medication (Patient's Own Med) 1 ea BID ORAL 06/23/19 23:00 07/23/19 22:59 06/25/19 09:16 Patient Own Medication (Patient's Own Med) 1 ea BIDPC ORAL 06/23/19 23:00 07/23/19 22:59 06/25/19 09:16 Patient Own Medication (Patient's Own Med) 1 ea DAILY ORAL 06/24/19 09:00 07/24/19 08:59 06/25/19 09:16 Patient Own Medication (Patient's Own Med) 1 ea DAILY ORAL 06/24/19 09:00 07/24/19 08:59 06/25/19 09:16 Rifaximin (Xifaxan) 550 mg EVERY 12 HOURS ORAL 06/23/19 21:00 06/30/19 20:59 06/25/19 09:15 Topiramate (Topamax) 75 mg EVERY 12 HOURS ORAL 06/23/19 21:00 07/23/19 20:59 06/25/19 09:15 Voriconazole (Vfend) 200 mg EVERY 12 HOURS ORAL 06/23/19 22:00 06/25/19 21:59 06/25/19 09:14 Assessment/Plan Assessment/Plan: Abx: None Assessment: Probable seizure -UDS+ amphetamines Memory loss, peripheral neuropathy Back pain -06/23 CT L spine wo: No evidence of acute fracture or traumatic malalignment. Diffuse sclerosis of the osseous structures which may be related to hyperparathyroidism (primary versus secondary, for example renal osteodystrophy). Additional considerations including multiple myeloma or bony menisci (primary or secondary) not excluded. Multilevel degenerative changes of the lumbar spine, progressed compared to theprior exam in 2013. Afebrile Pancytopenia -u/a neg -06/23 CXR: No definite radiographic evidence of acute cardiopulmonary disease. Increased sclerosis of the vertebral bodies noted, as better seen on concurrent lumbar spine CT. This may be related to hyperparathyroidism (primary versus secondary). Additional considerations including multiple myeloma or bony malignancy, primary or secondary, not excluded. Correlation with history recommended. HIV on ARV -dx on 1992 -Reported CD4 250 and VL undetectable hx of coccidioidal meningitis 2012 HTN Cirrhosis Opioid dependance s/p cholecystectomy DVT/PE s/p IVC filter hx of S aureus PNA 2014 syphilis ~20 yrs ago seizure disorder Plan: -Continue to monitor off abx -Continue Voriconazole for maintenance therapy for prior Cocci meningitis -f/u cx -Monitor CBC/CMP, temperatures -Continue ARV: Tivicay, Intelence, Ritonavir, Atazanavir -Heme onc, Neuro f/u -HIV VL and CD4, RPR -F/u MRI brain Thank you for this consultation. Will continue to follow along with you. Discussed with HUBER. Niki Jaimes M.D. Jun 25, 2019 12:57
[2019-06-25] MEDS ORDERED: Gadavist 7.5mMol/7.5ml vial IV PRN (13:00)
--- NOTE | 2019-06-25 14:15 | Progress Note ---
DATE: 06/25/2019 SUBJECTIVE: The patient has had no seizures. He had his EEG, but the results are not back yet. He still complains of pain mainly in his back and some areas. PHYSICAL EXAMINATION: MENTAL STATUS: He knows it is June 2019. He thinks it is . Place, he knows he is at [facility], does not know the floor. Person, oriented to person. Language function, comprehension is intact. He could spell world backwards. CRANIAL NERVE EXAMINATION: Cranial nerves II through XII reveal no change. MUSCLE EXAMINATION: Muscle bulk and tone are intact. Strength is probably still 5/5 although he complains of pain especially in the right lower extremity. Reflexes are 0 in the upper and lower extremities. COORDINATION: Clpvvw-op-ritg is intact. Zwgq-yi-hnmh testing is probably intact. IMPRESSION: He has no seizures so far. The patient was warned about alcohol and amphetamine use. PLAN: 1. Obtain EEG. 2. Repeat RPR and FTA. 3. Continue his medications. Rangel Wells MD DR: BISI JOB#: [id number] CC:
--- NOTE | 2019-06-25 14:46 | NUR ---
CASE MANAGEMENT:REVIEW 06/25/19 SI: UNCONTROLLED SEIZURE. LUMBAR CONTUSION OPIATE DEPENDENCE 97.5 80 19 145/80 96% ON RA WBC-2.9 H/H-8.9/26.8 PLT-49 BUN+22 IS: HAART REGIMEN IV DILAUDID Q4HRS PRN LOPID PO BID VFEND PO Q12 VIMPAT PO Q12 KEPPRA PO Q12 TOPAMAX PO Q12 METFORMIN PO BID : TELEMETRY DCP: FROM HOME PLAN: MRI BRAIN TRANSFER TO MED/SURG
--- NOTE | 2019-06-25 14:54 | NUR ---
DISCHARGE PLANNING NURSING TO OBTAIN NEURO CLEARANCE FOR DISCHARGE AND PRESCRIPTION FROM PAIN MGMT FOR DISCHARGE
--- NOTE | 2019-06-25 15:10 | NUR ---
NURSE NOTES: Patient's off tele floor for MRI test. Patient complained of pain, 10/10 while at MRI location. Lavon, in flight technician called. Given Dilaudid 1mg IVP off site. J Luis, Charge nurse verified.
[2019-06-25 16:00] VITALS: BP 135/98
--- NOTE | 2019-06-25 16:15 | NUR ---
NURSE NOTES: Patient refused to get MRI test done, stated :"I"m claustrophobic. I don't want a close MRI. It supposes to be open. I don't want to do it." Nurse explained to him physician can prescribe Ativan 1mg for him but he still refused. Contacted Dr. Jaimes and Dr. Wells regarding the situation. MDs aware.
--- NOTE | 2019-06-25 16:18 | NUR ---
ON FIRST ATTEMPT pt REQUESTED PAIN MEDS. CALLED RN ( JOSE) AND SHE CAME DOWN TO GIVE pt MEDS. REATTEMPTED AND pt WAS UNABLE TO TOLERATE BEING IN SCANNER. (SCAN HAD NOT YET EVEN BEGUN) pt REQUESTED TO BE PULLED OUT OF SCANNER. pt IS CLAUSTRO AND IS UNABLE TO DO THIS EXAM. pt IS REQUESTING TO HAVE OPEN MRI WHICH HE IS USED TO- CS @ 1600 HRS
--- NOTE | 2019-06-25 16:30 | Electroencephalogram ---
DATE OF PROCEDURE: 06/24/2019 ELECTROENCEPHALOGRAM REPORT REQUESTING PHYSICIAN: Rangel Wells M.D. READING PHYSICIAN: Rogelio Deluca M.D. HISTORY: This EEG was performed on 44-year-old gentleman with a history of diabetes mellitus and HIV disease, who was noted to have a seizure. The purpose of this EEG was to better delineate the type of seizure disorder. TECHNICAL NOTE: This EEG was performed on a [employer] Digital [employer] Unit with electrodes placed on the scalp according to the International 10-20 system. Zjzik-ia-cfwur and qvswz-hk-ngm montages were used. The EEG was technically satisfactory and was performed in the awake, drowsy, and sleep states. OBSERVATIONS: In the best-awake state, the background activity consisted of 5-6 Hz theta activity with some intermixed faster alpha frequency activity. Drowsiness was characterized by slowing of the background in the 4-5 Hz theta range with intermixed delta frequencies. Stage II sleep was characterized by further slowing of the background in the delta and theta range, the presence of vertex waves, and 14 Hz sleep spindles. No focal abnormalities or epileptiform discharges were seen. IMPRESSION: This is an abnormal EEG characterized by slowing of the background in the 5-6 Hz theta range in the best-wake state. COMMENT: This study is consistent with an encephalopathy of a moderate degree. Please note that the lack of interictal discharges does not rule out a seizure disorder. Rogelio Deluca M.D., M.S.P.H. Clinical Neurophysiologist DR: Kianna JOB#: [id number] MTDD
--- NOTE | 2019-06-25 19:17 | NUR ---
HAND-OFF: Report given to HUBER Anderson. Patient's stable, plan of care endorsed.
--- NOTE | 2019-06-25 19:30 | NUR ---
NURSE NOTES: Received report from HUBER Renee. Patient is in bed, awake and responsive. Breathing regular and unlabored with no s/s of SOB noted at this time. Patient is currently c/o some pain, will administer PRN pain medications as prescribed. Patient's is currently at bedside. brought patient's own medications from home, will take it down to pharmacy for safe keeping. Bed is in lowest position, breaks engaged, and call light is within reach at all times. All other needs attended to, will continue to monitor.
[2019-06-25 20:00] VITALS: BP 134/82
--- NOTE | 2019-06-25 23:15 | Consultation ---
DATE OF CONSULTATION: 06/25/2019 ORTHOPEDIC CONSULTATION CONSULTING PHYSICIAN: Aguilar Sibley M.D. CHIEF COMPLAINT: Right shoulder pain and low back pain. HISTORY OF PRESENT ILLNESS: The patient is a pleasant 44-year-old gentleman with seizure issue who subsequently was sitting down on the chair, subsequently blacked out, and landed on his back. He awoke. Since that he was admitted to the hospital for further care and recommendation. He is having pain in the left shoulder with overhead activities. He is also having lower back pain radiating down to his posterior buttock down his right thigh, but not beyond his knee. PAST MEDICAL HISTORY: Reviewed from the intake chart. SURGICAL HISTORY: Reviewed from the intake chart. MEDICATIONS: Reviewed from the intake chart. PHYSICAL EXAMINATION: GENERAL: The patient is alert, oriented. He is resting comfortably on bed. VITAL SIGNS: Afebrile. Stable vital signs. EXTREMITIES: Left shoulder examination shows forward elevation is 120, abduction is 60. There is pain on the entrance of the acromion. Moderate crepitus. Neurovascular exam is normal. Pain with supraspinatus testing. Minimal pain on the cervical spine parascapular area. BACK: Low back examination shows tenderness to lumbar paraspinal muscles. Sensation intact to light touch. There is radiating pain down the right L5-S1 distribution. CT scan of the lumbar spine showed some mottling of the bone. There is some facet arthropathy. No obvious fracture. ASSESSMENT: 1. Left shoulder partial rotator cuff tear. 2. Lumbar strain. DISCUSSION: In terms of his left shoulder, he did not left shoulder backwards, but he probably has strain of the rotator cuff or partial tear/bursitis. At this point, what we recommend is active range of motion left shoulder. If he still has continued issues, then MRI of the left shoulder will be warranted to make sure he does have a full-thickness rotator cuff tear, which I do not think it does. In terms of his lower back pain, he is having some radiating pain down the L5-S1 distribution. He previously had some lumbar infection for which he had treatment for. At this point, given that he fell back, I think it is prior related to lumbar disc issue. What I recommend is physical therapy with ambulation with a walker. Currently, he needs to fail conservative treatment first before any type of additional surgical intervention would be considered particularly in his left shoulder. As far as his lumbar spine, if he has continued issues, an MRI of the lumbar spine, possible epidural injection may be reasonable. Similarly in terms of his left shoulder if he has continued issues despite conservative treatment, an MRI of the left shoulder and possible course of injection may be an option. At this point, I will communicate my findings with the primary treating physician and then go for additional treatment options. Aguilar Sibley M.D. DR: WAQAR JOB#: [id number] CC:
[2019-06-26] VITALS: BP 152/97
[2019-06-26] MEDS: HYDROmorphone 1mg/ml Carpuject IVP PRN ×5 (01:52→20:24)
[2019-06-26 04:00] VITALS: BP 145/76
--- NOTE | 2019-06-26 07:18 | NUR ---
HAND-OFF: Report given to HUBER Keen. Patient in stable condition. Endorsed patient's order to transfer to [facility] after breakfast.
--- NOTE | 2019-06-26 07:20 | NUR ---
NURSE NOTES: Received pt in bed, AAO x3-4. Room air. No c/o of distress/pain at this moment. Stephen-cath on RU chest noted. Side rails padded for seizure precaution. Bed in the lowest and locked. Call light within reach. Will continue to monitor
[2019-06-26 08:00] VITALS: BP 139/72
[2019-06-26 08:03] LABS: HEMATOCRIT 26.7 % (42.0-52.0); MEAN CORPUSCULAR VOLUME 84 FL (80-99); PLATELET COUNT 48 K/UL (150-450); RED BLOOD COUNT 3.17 M/UL (4.70-6.10); WHITE BLOOD COUNT 2.7 K/UL (4.8-10.8)
[2019-06-26 08:11] LABS: ANION GAP 9 mmol/L (5-15); BLOOD UREA NITROGEN 17 mg/dL (7-18); CALCIUM 7.8 MG/DL (8.5-10.1); CARBON DIOXIDE 22 MMOL/L (21-32); CHLORIDE 112 MMOL/L (98-107); POTASSIUM 4.2 MMOL/L (3.5-5.1); SODIUM 143 MMOL/L (136-145)
[2019-06-26] MEDS: ATAZANAVIR 300 MG ORAL SCH (08:54)
[2019-06-26] MEDS: Topiramate 25mg tab ORAL SCH ×2 (08:56→20:29)
[2019-06-26] MEDS: Lacosamide 50mg tablet ORAL SCH ×2 (08:56→20:28)
--- NOTE | 2019-06-26 11:22 | NUR ---
TRANSFER TO FLOOR: Patient transferred to [facility]. Report given to HUBER Jimenez. Belongings and medications give.
--- NOTE | 2019-06-26 11:22 | NUR ---
NURSE NOTES: Patient arrived on unit via hospital bed. Stable. C/o pain at this time on Left arm, shoulder, and back. Side rails are padded. Patient's belongings accounted for. Patient oriented to room, call light, and unit. Patient instructed to use call light for assistance, verbalized understanding. Patient is in bed in locked and lowest position with call light within reach. All safety measures provided. Will continue to monitor.
[2019-06-26 12:00] VITALS: BP 150/86
[2019-06-26] MEDS ORDERED: Gadavist 7.5mMol/7.5ml vial IV PRN (13:00)
[2019-06-26 16:00] VITALS: BP 140/89
[2019-06-26] MEDS: Patient's Own Med - Tivicay 50mg ORAL SCH (17:39)
--- NOTE | 2019-06-26 18:33 | Infectious Diseases Prog Note ---
Assessment/Plan Assessment/Plan Assessment: Probable seizure -UDS+ amphetamines Memory loss, peripheral neuropathy Back pain -06/23 CT L spine wo: No evidence of acute fracture or traumatic malalignment. Diffuse sclerosis of the osseous structures which may be related to hyperparathyroidism (primary versus secondary, for example renal osteodystrophy). Additional considerations including multiple myeloma or bony menisci (primary or secondary) not excluded. Multilevel degenerative changes of the lumbar spine, progressed compared to theprior exam in 2013. Afebrile Pancytopenia -u/a neg -06/23 CXR: No definite radiographic evidence of acute cardiopulmonary disease. Increased sclerosis of the vertebral bodies noted, as better seen on concurrent lumbar spine CT. This may be related to hyperparathyroidism (primary versus secondary). Additional considerations including multiple myeloma or bony malignancy, primary or secondary, not excluded. Correlation with history recommended. HIV on ARV -dx on 1992 -Reported CD4 250 and VL undetectable -RPR neg, acute hep panel negative hx of coccidioidal meningitis 2012 HTN Cirrhosis Opioid dependance s/p cholecystectomy DVT/PE s/p IVC filter hx of S aureus PNA 2013 syphilis ~20 yrs ago seizure disorder Plan: -Continue to monitor off antibacterial -Continue Voriconazole for maintenance therapy for prior Cocci meningitis -f/u cx -Monitor CBC/CMP, temperatures -Continue ARV: Tivicay, Intelence, Ritonavir, Atazanavir -Heme onc, Neuro f/u -HIV VL and CD4 -F/u MRI brain Thank you for this consultation. Will continue to follow along with you. Subjective Allergies: Coded Allergies: SULFA (SULFONAMIDE ANTIBIOTICS) (Verified Allergy, Mild, 06/21/09) MORPHINE (Verified Allergy, Unknown, 10/13/14) ALLERGIC TO LIQUID MORPHINE ONLY PER S.O. Uncoded Allergies: SULFA (Allergy, Unknown, 06/23/19) Subjective Afebrile. downtrending wbc Reports back pain where he fell appropriately interactive Objective Vital Signs Last 24 Hour Vital Signs Date Time Temp Pulse Resp B/P (MAP) Pulse Ox O2 Delivery O2 Flow Rate FiO2 06/26/19 16:00 98.0 90 20 140/89 (106) 100 06/26/19 12:00 98.1 90 20 150/86 (107) 100 06/26/19 08:13 Room Air Room Air 06/26/19 08:00 97.9 85 18 139/72 (94) 96 06/26/19 04:00 97.8 81 18 145/76 (99) 99 06/26/19 00:00 98.1 91 16 152/97 (115) 98 06/25/19 21:00 Room Air Room Air 06/25/19 20:00 85 06/25/19 20:00 97.7 90 18 134/82 (99) 97 Height (Feet): 5 Height (Inches): 11.00 Weight (Pounds): 195 Objective Gen: NAD HEENT: anicteric sclera CV: RRR. no extra heart sounds Resp: RRR. unlabored. equal chest rise Abd: soft. no TTP Neuro: alert. interactive Laboratory Tests Test 06/26/19 06:50 White Blood Count Pending Red Blood Count 3.17 M/UL (4.70-6.10) L Hemoglobin 9.0 G/DL (14.2-18.0) L Hematocrit 26.7 % (42.0-52.0) L Mean Corpuscular Volume 84 FL (80-99) Mean Corpuscular Hemoglobin 28.5 PG (27.0-31.0) Mean Corpuscular Hemoglobin Concent 33.8 G/DL (32.0-36.0) Red Cell Distribution Width 15.0 % (11.6-14.8) H Platelet Count 48 K/UL (150-450) L Mean Platelet Volume 6.4 FL (6.5-10.1) L Neutrophils (%) (Auto) % (45.0-75.0) Lymphocytes (%) (Auto) % (20.0-45.0) Monocytes (%) (Auto) % (1.0-10.0) Eosinophils (%) (Auto) % (0.0-3.0) Basophils (%) (Auto) % (0.0-2.0) Differential Total Cells Counted 100 Neutrophils % (Manual) 44 % (45-75) L Lymphocytes % (Manual) 46 % (20-45) H Monocytes % (Manual) 4 % (1-10) Eosinophils % (Manual) 6 % (0-3) H Basophils % (Manual) 0 % (0-2) Band Neutrophils 0 % (0-8) Lymphocytes Pending Platelet Estimate Decreased L Platelet Morphology Normal Anisocytosis 1+ Sodium Level 143 MMOL/L (136-145) Potassium Level 4.2 MMOL/L (3.5-5.1) Chloride Level 112 MMOL/L (98-107) H Carbon Dioxide Level 22 MMOL/L (21-32) Anion Gap 9 mmol/L (5-15) Blood Urea Nitrogen 17 mg/dL (7-18) Creatinine 1.0 MG/DL (0.55-1.30) Estimat Glomerular Filtration Rate > 60 mL/min (>60) Glucose Level 111 MG/DL (74-106) H Calcium Level 7.8 MG/DL (8.5-10.1) L Percent CD3 Cells Pending Absolute CD3 Count Pending Percent CD4 Cells Pending Absolute CD4 Count Pending T-Lymphocyte CD4/CD8 Ratio Pending Percent CD8 Cells Pending Absolute CD8 Count Pending HIV-1 RNA (PCR) log10 Value Pending HIV-1 RNA Ultraquantitative (PCR) Pending Current Medications Medications (Trade) Dose Ordered Sig/Diaz Route PRN Reason Start Time Stop Time Status Last Admin Dose Admin Gadobutrol (Gadavist) 7.5 mmol NOW PRN IV Radiology Procedure 06/26/19 13:00 06/29/19 12:53 Gemfibrozil (Lopid) 600 mg TWICE A DAY ORAL 06/26/19 18:00 07/23/19 21:59 06/26/19 17:38 Hydromorphone HCl (Dilaudid) 1 mg Q4H PRN IVP For Pain 06/26/19 11:30 06/30/19 11:29 06/26/19 15:49 Lacosamide (Vimpat) 200 mg Q12HR ORAL 06/26/19 21:00 07/23/19 20:59 Levetiracetam (Keppra) 1,750 mg Q12HR ORAL 06/26/19 21:00 07/23/19 20:59 Metformin HCl (Glucophage) 850 mg BID ORAL 06/26/19 18:00 07/23/19 20:59 06/26/19 17:39 Patient Own Medication (Patient's Own Med) 1 ea BID ORAL 06/26/19 18:00 07/23/19 22:59 06/26/19 17:39 Patient Own Medication (Patient's Own Med) 1 ea BIDPC ORAL 06/26/19 18:00 07/23/19 22:59 06/26/19 17:39 Patient Own Medication (Patient's Own Med) 1 ea DAILY ORAL 06/27/19 09:00 07/24/19 08:59 Patient Own Medication (Patient's Own Med) 1 ea DAILY ORAL 06/27/19 09:00 07/24/19 08:59 Rifaximin (Xifaxan) 550 mg EVERY 12 HOURS ORAL 06/26/19 21:00 06/30/19 20:59 Topiramate (Topamax) 75 mg EVERY 12 HOURS ORAL 06/26/19 21:00 07/23/19 20:59 Voriconazole (Vfend) 200 mg EVERY 12 HOURS ORAL 06/26/19 21:00 07/02/19 23:59 Nikole Stiles MD Jun 26, 2019 18:33
--- NOTE | 2019-06-26 19:30 | NUR ---
HAND-OFF: Report given to Tiffanie NGO. Patient is stable.
--- NOTE | 2019-06-26 19:35 | NUR ---
NURSE NOTES: Patient in bed, awake and alert x4. On room air with no signs of distress or SOB. Right upper chest mediport noted. Side rails padded for seizure precautions. Bed in locked and lowest position with call light within reach. Will continue to monitor.
[2019-06-26 20:00] VITALS: BP 139/91
--- NOTE | 2019-06-26 20:51 | General Progress Note ---
Assessment/Plan Problem List: (1) Dehydration (2) Acute abdominal pain (3) Pneumonia ICD Codes: J18.9 - Pneumonia SNOMED: 306242069 (4) HIV disease ICD Codes: B20 - HIV disease SNOMED: 64337550 (5) Abdominal pain (6) IDDM (insulin dependent diabetes mellitus) ICD Codes: E11.9 - IDDM (insulin dependent diabetes mellitus) SNOMED: 16326606 (7) recurrent seizure (8) Iron deficiency anemia ICD Codes: D50.9 - Iron deficiency anemia SNOMED: 44689928 (9) Pancreatitis ICD Codes: K85.9 - Pancreatitis SNOMED: 15311359 (10) Nausea, vomiting, and diarrhea Status: progressing Assessment/Plan: pancreatitis anemia iddm abdomina pain no vomitting febrile Subjective ROS Limited/Unobtainable: Yes Allergies: Coded Allergies: SULFA (SULFONAMIDE ANTIBIOTICS) (Verified Allergy, Mild, 06/21/09) MORPHINE (Verified Allergy, Unknown, 10/13/14) ALLERGIC TO LIQUID MORPHINE ONLY PER S.O. Uncoded Allergies: SULFA (Allergy, Unknown, 06/23/19) Objective Last 24 Hour Vital Signs Date Time Temp Pulse Resp B/P (MAP) Pulse Ox O2 Delivery O2 Flow Rate FiO2 06/26/19 20:00 97.9 86 20 139/91 (107) 97 06/26/19 16:00 98.0 90 20 140/89 (106) 100 06/26/19 12:00 98.1 90 20 150/86 (107) 100 06/26/19 08:13 Room Air Room Air 06/26/19 08:00 97.9 85 18 139/72 (94) 96 06/26/19 04:00 97.8 81 18 145/76 (99) 99 06/26/19 00:00 98.1 91 16 152/97 (115) 98 06/25/19 21:00 Room Air Room Air Intake and Output 06/25/19 06/26/19 19:00 07:00 Intake Total 450 ml Output Total 3 ml Balance 450 ml -3 ml Intake Oral 450 ml Output Urine Total 3 ml # Voids 4 # Bowel Movements 1 Laboratory Tests 06/26/19 06:50: White Blood Count [Pending], Red Blood Count 3.17L, Hemoglobin 9.0L, Hematocrit 26.7L, Mean Corpuscular Volume 84, Mean Corpuscular Hemoglobin 28.5, Mean Corpuscular Hemoglobin Concent 33.8, Red Cell Distribution Width 15.0H, Platelet Count 48L, Mean Platelet Volume 6.4L, Neutrophils (%) (Auto) , Lymphocytes (%) (Auto) , Monocytes (%) (Auto) , Eosinophils (%) (Auto) , Basophils (%) (Auto) , Differential Total Cells Counted 100, Neutrophils % ( Manual) 44L, Lymphocytes % (Manual) 46H, Monocytes % (Manual) 4, Eosinophils % ( Manual) 6H, Basophils % (Manual) 0, Band Neutrophils 0, Lymphocytes [Pending], Platelet Estimate DecreasedL, Platelet Morphology Normal, Anisocytosis 1+, Sodium Level 143, Potassium Level 4.2, Chloride Level 112H, Carbon Dioxide Level 22, Anion Gap 9, Blood Urea Nitrogen 17, Creatinine 1.0, Estimat Glomerular Filtration Rate > 60, Glucose Level 111H, Calcium Level 7.8L, Percent CD3 Cells [Pending], Absolute CD3 Count [Pending], Percent CD4 Cells [ Pending], Absolute CD4 Count [Pending], T-Lymphocyte CD4/CD8 Ratio [Pending], Percent CD8 Cells [Pending], Absolute CD8 Count [Pending], HIV-1 RNA (PCR) log10 Value [Pending], HIV-1 RNA Ultraquantitative (PCR) [Pending] Height (Feet): 5 Height (Inches): 11.00 Weight (Pounds): 195 Neck: supple Cardiovascular: normal rate Respiratory/Chest: chest wall non-tender, lungs clear Abdomen: soft Yamil Tomas MD Jun 26, 2019 20:51
[2019-06-27] VITALS: BP 151/86
[2019-06-27] MEDS: HYDROmorphone 1mg/ml Carpuject IVP PRN ×6 (00:44→21:35)
[2019-06-27 04:00] VITALS: BP 152/85
[2019-06-27 06:38] LABS: HEMATOCRIT 27.5 % (42.0-52.0); HEMOGLOBIN 8.9 G/DL (14.2-18.0); MEAN CORPUSCULAR VOLUME 85 FL (80-99); PLATELET COUNT 59 K/UL (150-450); RED BLOOD COUNT 3.24 M/UL (4.70-6.10); RED CELL DISTRIBUTION WIDTH 15.6 % (11.6-14.8); WHITE BLOOD COUNT 2.5 K/UL (4.8-10.8)
--- NOTE | 2019-06-27 07:38 | NUR ---
HAND-OFF: Report given to HUBER Vaughan.
[2019-06-27 08:00] VITALS: BP 134/86
--- NOTE | 2019-06-27 08:00 | NUR ---
NURSE NOTES: AWAKE/ALERT. PAIN SCALE 7/10. IN NO ACUTE DISTRESS.
--- NOTE | 2019-06-27 08:01 | Hematology/Onc Progress Note ---
Assessment/Plan Assessment/Plan Assessment and Recs: # Thrombocytopenia, severe -- plt approx 51k at this time, reviewed prior counts and imaging, does have a history of cirrhosis and hiv++ --> hep panel negative --> hiv prelim positive --> transfuse as needed, hgb goal >7 --> no bleeding, no hemolysis is seen --> path smear has been reviewed --> plt trend 49-->48-->59k --> meds noted # Anemia of iron deficiency, unspecified rule out gi bleed --> obtain a anemia panel, ferritin 39 --> hgb goal is >7, transfuse as needed --> trend CBC daily to make sure no major acute drop --> no evidence of hemolysis noted --> hgb trend: 8.9 # DVt of the lower ext --> as long as is not bleeding, continue xarelto --> okay to monitor on xarelto, has been restarted # Questionable seizure, no acute seizures overnight. --> per neuro eval --> meds restarted antiepilecptics # Human immunodeficiency virus. --> id eval prn # Significant narcotic dependence --> restarted meds --> per Dr. Crump # Obesity --> recommend weight loss # Hypoglycemia --> improved # Diabetes mellitus --> iss and accuchecks qac and qhs Appreciate consultation and dw Rn Subjective Constitutional: Denies: no symptoms, chills, fever, malaise, weakness, other Respiratory: Denies: no symptoms, cough, shortness of breath, SOB with excertion, SOB at rest, sputum, wheezing, other Gastrointestinal/Abdominal: Denies: no symptoms, abdomen distended, abdominal pain, black stools, tarry stools, blood in stool, constipated, diarrhea, difficulty swallowing, nausea, poor appetite, poor fluid intake, rectal bleeding , vomiting, other Genitourinary: Denies: no symptoms, burning, discharge, frequency, flank pain, hematuria, incontinence, pain, urgency, other Neurologic/Psychiatric: Denies: no symptoms, anxiety, depressed, emotional problems, headache, numbness, paresthesia, pre-existing deficit, seizure, tingling, tremors, weakness, other Endocrine: Denies: no symptoms, excessive sweating, flushing, intolerance to cold, intolerance to heat, increased hunger, increased thirst, increased urine, unexplained weight gain, unexplained weight loss, other Allergies: Coded Allergies: SULFA (SULFONAMIDE ANTIBIOTICS) (Verified Allergy, Mild, 06/21/09) MORPHINE (Verified Allergy, Unknown, 10/13/14) ALLERGIC TO LIQUID MORPHINE ONLY PER S.O. Uncoded Allergies: SULFA (Allergy, Unknown, 06/23/19) Subjective 06/25: awake and alert, no acute events, prelim hiv positive, hep panel negative 06/27: no major changes, no bleeding, no night sweats, no f/c Objective Objective Current Medications Medications (Trade) Dose Ordered Sig/Diaz Route PRN Reason Start Time Stop Time Status Last Admin Dose Admin Gadobutrol (Gadavist) 7.5 mmol NOW PRN IV Radiology Procedure 06/26/19 13:00 06/29/19 12:53 Gemfibrozil (Lopid) 600 mg TWICE A DAY ORAL 06/26/19 18:00 07/23/19 21:59 06/26/19 17:38 Hydromorphone HCl (Dilaudid) 1 mg Q4H PRN IVP For Pain 06/26/19 11:30 06/30/19 11:29 06/27/19 04:55 Lacosamide (Vimpat) 200 mg Q12HR ORAL 06/26/19 21:00 07/23/19 20:59 06/26/19 20:28 Levetiracetam (Keppra) 1,750 mg Q12HR ORAL 06/26/19 21:00 07/23/19 20:59 06/26/19 20:25 Metformin HCl (Glucophage) 850 mg BID ORAL 06/26/19 18:00 07/23/19 20:59 06/26/19 17:39 Patient Own Medication (Patient's Own Med) 1 ea BID ORAL 06/26/19 18:00 07/23/19 22:59 06/26/19 17:39 Patient Own Medication (Patient's Own Med) 1 ea BIDPC ORAL 06/26/19 18:00 07/23/19 22:59 06/26/19 17:39 Patient Own Medication (Patient's Own Med) 1 ea DAILY ORAL 06/27/19 09:00 07/24/19 08:59 Patient Own Medication (Patient's Own Med) 1 ea DAILY ORAL 06/27/19 09:00 07/24/19 08:59 Rifaximin (Xifaxan) 550 mg EVERY 12 HOURS ORAL 06/26/19 21:00 06/30/19 20:59 06/26/19 20:34 Topiramate (Topamax) 75 mg EVERY 12 HOURS ORAL 06/26/19 21:00 07/23/19 20:59 06/26/19 20:29 Voriconazole (Vfend) 200 mg EVERY 12 HOURS ORAL 06/26/19 21:00 07/02/19 23:59 06/26/19 20:26 Last 24 Hour Vital Signs Date Time Temp Pulse Resp B/P (MAP) Pulse Ox O2 Delivery O2 Flow Rate FiO2 06/27/19 04:00 98.0 85 20 152/85 (107) 96 06/27/19 00:00 97.7 87 20 151/86 (107) 96 06/26/19 21:00 Room Air Room Air 06/26/19 20:00 97.9 86 20 139/91 (107) 97 06/26/19 16:00 98.0 90 20 140/89 (106) 100 06/26/19 12:00 98.1 90 20 150/86 (107) 100 06/26/19 08:13 Room Air Room Air 06/26/19 08:00 97.9 85 18 139/72 (94) 96 06/26/19 04:00 97.8 81 18 145/76 (99) 99 06/26/19 00:00 98.1 91 16 152/97 (115) 98 06/25/19 21:00 Room Air Room Air 06/25/19 20:00 85 06/25/19 20:00 97.7 90 18 134/82 (99) 97 06/25/19 16:03 98.9 06/25/19 16:00 98.7 86 18 135/98 (110) 100 06/25/19 16:00 88 06/25/19 12:00 90 06/25/19 12:00 98.9 80 19 145/80 (101) 96 06/25/19 09:00 Room Air Room Air Intake and Output 06/26/19 06/27/19 19:00 07:00 Intake Total 350 ml Output Total 700 ml Balance -350 ml Intake Oral 350 ml Output Urine Total 700 ml # Voids 4 Labs Test 06/24/19 08:10 06/25/19 06:00 06/25/19 06:30 06/26/19 06:50 Hepatitis A IgM Antibody Negative (Negative) Hepatitis B Surface Antigen Negative (Negative) Hepatitis B Core IgM Antibody Negative (Negative) Hepatitis C Antibody <0.1 s/co ratio White Blood Count 2.9 K/UL (4.8-10.8) 2.7 K/UL (4.8-10.8) Red Blood Count 3.17 M/UL (4.70-6.10) 3.17 M/UL (4.70-6.10) Hemoglobin 8.9 G/DL (14.2-18.0) 9.0 G/DL (14.2-18.0) Hematocrit 26.8 % (42.0-52.0) 26.7 % (42.0-52.0) Mean Corpuscular Volume 85 FL (80-99) 84 FL (80-99) Mean Corpuscular Hemoglobin 28.0 PG (27.0-31.0) 28.5 PG (27.0-31.0) Mean Corpuscular Hemoglobin Concent 33.1 G/DL (32.0-36.0) 33.8 G/DL (32.0-36.0) Red Cell Distribution Width 15.1 % (11.6-14.8) 15.0 % (11.6-14.8) Platelet Count 49 K/UL (150-450) 48 K/UL (150-450) Mean Platelet Volume 6.5 FL (6.5-10.1) 6.4 FL (6.5-10.1) Neutrophils (%) (Auto) % (45.0-75.0) % (45.0-75.0) Lymphocytes (%) (Auto) % (20.0-45.0) % (20.0-45.0) Monocytes (%) (Auto) % (1.0-10.0) % (1.0-10.0) Eosinophils (%) (Auto) % (0.0-3.0) % (0.0-3.0) Basophils (%) (Auto) % (0.0-2.0) % (0.0-2.0) Differential Total Cells Counted 100 100 Neutrophils % (Manual) 45 % (45-75) 44 % (45-75) Lymphocytes % (Manual) 45 % (20-45) 46 % (20-45) Monocytes % (Manual) 8 % (1-10) 4 % (1-10) Eosinophils % (Manual) 2 % (0-3) 6 % (0-3) Basophils % (Manual) 0 % (0-2) 0 % (0-2) Band Neutrophils 0 % (0-8) 0 % (0-8) Platelet Estimate Decreased Decreased Platelet Morphology Normal Normal Anisocytosis 1+ 1+ Rapid Plasma Reagin Non reactive (Non Reactive) Sodium Level 143 MMOL/L (136-145) Potassium Level 4.2 MMOL/L (3.5-5.1) Chloride Level 112 MMOL/L (98-107) Carbon Dioxide Level 22 MMOL/L (21-32) Anion Gap 9 mmol/L (5-15) Blood Urea Nitrogen 17 mg/dL (7-18) Creatinine 1.0 MG/DL (0.55-1.30) Estimat Glomerular Filtration Rate > 60 mL/min (>60) Glucose Level 111 MG/DL (74-106) Calcium Level 7.8 MG/DL (8.5-10.1) Test 06/27/19 05:10 White Blood Count 2.5 K/UL (4.8-10.8) Red Blood Count 3.24 M/UL (4.70-6.10) Hemoglobin 8.9 G/DL (14.2-18.0) Hematocrit 27.5 % (42.0-52.0) Mean Corpuscular Volume 85 FL (80-99) Mean Corpuscular Hemoglobin 27.6 PG (27.0-31.0) Mean Corpuscular Hemoglobin Concent 32.5 G/DL (32.0-36.0) Red Cell Distribution Width 15.6 % (11.6-14.8) Platelet Count 59 K/UL (150-450) Mean Platelet Volume 6.6 FL (6.5-10.1) Neutrophils (%) (Auto) % (45.0-75.0) Lymphocytes (%) (Auto) % (20.0-45.0) Monocytes (%) (Auto) % (1.0-10.0) Eosinophils (%) (Auto) % (0.0-3.0) Basophils (%) (Auto) % (0.0-2.0) Height (Feet): 5 Height (Inches): 11.00 Weight (Pounds): 195 Objective PE Vitals noted Gen: nad, A+O x3 Pulm: ctab, no cwr CV: rrr, no mgr Abd: sft, nt, nd Ext: no cce Wes Johnson MD Jun 27, 2019 08:01
[2019-06-27] MEDS: Topiramate 25mg tab ORAL SCH ×2 (08:55→20:24)
[2019-06-27] MEDS: Lacosamide 50mg tablet ORAL SCH ×2 (08:56→20:27)
[2019-06-27] MEDS: Patient's Own Med - Tivicay 50mg ORAL SCH ×2 (08:57→17:39)
[2019-06-27] MEDS: ATAZANAVIR 300 MG ORAL SCH (08:57)
[2019-06-27] MEDS: Patient's Own Med - Ritonavir 100mg ORAL SCH (09:08)
[2019-06-27 12:00] VITALS: BP 129/87
--- NOTE | 2019-06-27 13:48 | General Progress Note ---
Assessment/Plan Assessment/Plan: (1) HIV/AIDS (2) Peripheral Neuropathy Patient will be continued on Dilaudid as needed. D/w Dr. Guevara and he concurred. Subjective Date patient seen: Jun 28, 2019 Time patient seen: 12:15 - pm Constitutional: Reports: weakness HEENT: Reports: no symptoms Cardiovascular: Reports: no symptoms Respiratory: Reports: no symptoms Gastrointestinal/Abdominal: Reports: no symptoms Genitourinary: Reports: no symptoms Neurologic/Psychiatric: Reports: numbness, weakness Endocrine: Reports: no symptoms Hematologic/Lymphatic: Reports: no symptoms Allergies: Coded Allergies: SULFA (SULFONAMIDE ANTIBIOTICS) (Verified Allergy, Mild, 06/21/09) MORPHINE (Verified Allergy, Unknown, 10/13/14) ALLERGIC TO LIQUID MORPHINE ONLY PER S.O. Uncoded Allergies: SULFA (Allergy, Unknown, 06/23/19) Subjective Patient is in bed and continues to have pain which has been tolerated on the Dilaudid. No new complaints at this time. Objective Last 24 Hour Vital Signs Date Time Temp Pulse Resp B/P (MAP) Pulse Ox O2 Delivery O2 Flow Rate FiO2 06/27/19 12:00 98.5 90 18 129/87 (101) 97 06/27/19 09:34 98.0 06/27/19 09:00 Room Air Room Air 06/27/19 08:00 98.0 85 18 134/86 (102) 95 85 06/27/19 04:00 98.0 85 20 152/85 (107) 96 06/27/19 00:00 97.7 87 20 151/86 (107) 96 06/26/19 21:00 Room Air Room Air 06/26/19 20:00 97.9 86 20 139/91 (107) 97 06/26/19 16:00 98.0 90 20 140/89 (106) 100 Intake and Output 06/26/19 06/27/19 19:00 07:00 Intake Total 350 ml Output Total 700 ml Balance -350 ml Intake Oral 350 ml Output Urine Total 700 ml # Voids 4 Laboratory Tests 06/27/19 05:10: White Blood Count 2.5L, Red Blood Count 3.24L, Hemoglobin 8.9L, Hematocrit 27.5L , Mean Corpuscular Volume 85, Mean Corpuscular Hemoglobin 27.6, Mean Corpuscular Hemoglobin Concent 32.5, Red Cell Distribution Width 15.6H, Platelet Count 59L, Mean Platelet Volume 6.6, Neutrophils (%) (Auto) , Lymphocytes (%) (Auto) , Monocytes (%) (Auto) , Eosinophils (%) (Auto) , Basophils (%) (Auto) , Differential Total Cells Counted 100, Neutrophils % ( Manual) 45, Lymphocytes % (Manual) 44, Monocytes % (Manual) 5, Eosinophils % ( Manual) 6H, Basophils % (Manual) 0, Band Neutrophils 0, Platelet Estimate DecreasedL, Platelet Morphology Normal, Anisocytosis 1+ Height (Feet): 5 Height (Inches): 11.00 Weight (Pounds): 195 General Appearance: no apparent distress, alert EENT: PERRL/EOMI, normal ENT inspection Neck: non-tender, normal alignment Cardiovascular: normal rate, regular rhythm Respiratory/Chest: decreased breath sounds Abdomen: non tender, soft Extremities: non-tender Edema: no edema noted Generalized Neurologic: alert, oriented x 3 Skin: normal pigmentation Angelito Doe Jun 27, 2019 13:48
[2019-06-27 16:00] VITALS: BP 135/81
--- NOTE | 2019-06-27 19:23 | NUR ---
HAND-OFF: Report given to NOAH NGO.
--- NOTE | 2019-06-27 19:24 | NUR ---
NURSE NOTES: RESTING. IN NO DISTRESS.
--- NOTE | 2019-06-27 19:38 | NUR ---
NURSING NOTE: Met pt in bed, awake, A/OX4, able to express needs. Pt denies pain at this time. No outward s/s of distress noted. Breathing is even and unlabored on RA. Side rales padded for seizure precautions. R U chest khushboo-cath in place, flushes well. All due medications will be given. Bed at lowest level, call light within reach. Pt will continue to be monitored.
[2019-06-27 20:00] VITALS: BP 127/84
--- NOTE | 2019-06-27 20:35 | General Progress Note ---
Assessment/Plan Problem List: (1) Dehydration (2) Acute abdominal pain (3) Pneumonia ICD Codes: J18.9 - Pneumonia SNOMED: 114115973 (4) HIV disease ICD Codes: B20 - HIV disease SNOMED: 32708048 (5) Abdominal pain (6) IDDM (insulin dependent diabetes mellitus) ICD Codes: E11.9 - IDDM (insulin dependent diabetes mellitus) SNOMED: 84714870 (7) recurrent seizure (8) Iron deficiency anemia ICD Codes: D50.9 - Iron deficiency anemia SNOMED: 39896338 (9) Pancreatitis ICD Codes: K85.9 - Pancreatitis SNOMED: 06634808 (10) Nausea, vomiting, and diarrhea Status: progressing Assessment/Plan: needs iv fluids afebrile pancreatitis anemia iddm abdomina pain is persistent no acute events no vomitting febrile Subjective ROS Limited/Unobtainable: Yes Allergies: Coded Allergies: SULFA (SULFONAMIDE ANTIBIOTICS) (Verified Allergy, Mild, 06/21/09) MORPHINE (Verified Allergy, Unknown, 10/13/14) ALLERGIC TO LIQUID MORPHINE ONLY PER S.O. Uncoded Allergies: SULFA (Allergy, Unknown, 06/23/19) Objective Last 24 Hour Vital Signs Date Time Temp Pulse Resp B/P (MAP) Pulse Ox O2 Delivery O2 Flow Rate FiO2 06/27/19 17:28 98.2 06/27/19 16:00 98.2 87 18 135/81 (99) 99 06/27/19 12:00 98.5 90 18 129/87 (101) 97 06/27/19 09:00 Room Air Room Air 06/27/19 08:00 98.0 85 18 134/86 (102) 95 85 06/27/19 04:00 98.0 85 20 152/85 (107) 96 06/27/19 00:00 97.7 87 20 151/86 (107) 96 06/26/19 21:00 Room Air Room Air Intake and Output 06/26/19 06/27/19 19:00 07:00 Intake Total 350 ml Output Total 700 ml Balance -350 ml Intake Oral 350 ml Output Urine Total 700 ml # Voids 4 Laboratory Tests 06/27/19 05:10: White Blood Count 2.5L, Red Blood Count 3.24L, Hemoglobin 8.9L, Hematocrit 27.5L , Mean Corpuscular Volume 85, Mean Corpuscular Hemoglobin 27.6, Mean Corpuscular Hemoglobin Concent 32.5, Red Cell Distribution Width 15.6H, Platelet Count 59L, Mean Platelet Volume 6.6, Neutrophils (%) (Auto) , Lymphocytes (%) (Auto) , Monocytes (%) (Auto) , Eosinophils (%) (Auto) , Basophils (%) (Auto) , Differential Total Cells Counted 100, Neutrophils % ( Manual) 45, Lymphocytes % (Manual) 44, Monocytes % (Manual) 5, Eosinophils % ( Manual) 6H, Basophils % (Manual) 0, Band Neutrophils 0, Platelet Estimate DecreasedL, Platelet Morphology Normal, Anisocytosis 1+ Height (Feet): 5 Height (Inches): 11.00 Weight (Pounds): 195 Neck: supple Cardiovascular: normal rate Respiratory/Chest: lungs clear Yamil Tomas MD Jun 27, 2019 20:34
[2019-06-28] VITALS: BP 135/85
[2019-06-28] MEDS: HYDROmorphone 1mg/ml Carpuject IVP PRN ×2 (01:36→06:19)
[2019-06-28 04:00] VITALS: BP 140/87
--- NOTE | 2019-06-28 07:43 | NUR ---
HAND OFF: Report given to HUBER Smith. Pt in stable condition.
--- NOTE | 2019-06-28 07:45 | NUR ---
NURSE NOTES: Received report from Faye NGO. Patient is awake and oriented, no acute distress noted, reporting pain rated 7/10 in bilateral shoulders, will medicate per order. Right upper chest port-a-cath accessed with tegaderm dressing, site clean and dry. Fall precautions maintained. Patient refuses bed alarm, patient's walker at bedside and patient educated to call for assistance as needed when getting OOB. Side rails upx2, bed low and locked, call light within reach.
--- NOTE | 2019-06-28 07:46 | Hematology/Onc Progress Note ---
Assessment/Plan Assessment/Plan Assessment and Recs: # Thrombocytopenia, severe -- plt approx 51k at this time, reviewed prior counts and imaging, does have a history of cirrhosis and hiv++ --> hep panel negative --> hiv prelim positive --> transfuse as needed, hgb goal >7 --> no bleeding, no hemolysis is seen --> path smear has been reviewed --> plt trend 49-->48-->59k --> meds noted # DIFFUSE SCLEROSIS OF THE SPINE ---> CT SHOWED IMPRESSION: * No evidence of acute fracture or traumatic malalignment. * Diffuse sclerosis of the osseous structures which may be related to hyperparathyroidism (primary versus secondary, for example renal osteodystrophy) . Additional considerations including multiple myeloma or bony menisci (primary or secondary) not excluded. Clinical correlation recommended. * Multilevel degenerative changes of the lumbar spine, progressed compared to the prior exam in 2014. * Indwelling IVC filter, new compared to exam --> RECOMMEND OUTPATIENT EVAL FOR MM, SPEP TO BE ORDERED WELL UPEP # Anemia of iron deficiency, unspecified rule out gi bleed --> obtain a anemia panel, ferritin 39 --> hgb goal is >7, transfuse as needed --> trend CBC daily to make sure no major acute drop --> no evidence of hemolysis noted --> hgb trend: 8.9 # DVt of the lower ext --> as long as is not bleeding, continue xarelto --> okay to monitor on xarelto, has been restarted --> S/P IVC FILTER # Questionable seizure, no acute seizures overnight. --> per neuro eval --> meds restarted antiepilecptics # Human immunodeficiency virus. --> id eval prn # Significant narcotic dependence --> restarted meds --> per Dr. Crump # Obesity --> recommend weight loss # Hypoglycemia --> improved # Diabetes mellitus --> iss and accuchecks qac and qhs Appreciate consultation and sara Rn Subjective Constitutional: Denies: no symptoms, chills, fever, malaise, weakness, other HEENT: Denies: no symptoms, eye pain, blurred vision, tearing, double vision, ear pain, ear discharge, nose pain, nose congestion, throat pain, throat swelling, mouth pain, mouth swelling, other Cardiovascular: Denies: no symptoms, chest pain, edema, irregular heart rate, lightheadedness, palpitations, syncope, other Gastrointestinal/Abdominal: Denies: no symptoms, abdomen distended, abdominal pain, black stools, tarry stools, blood in stool, constipated, diarrhea, difficulty swallowing, nausea, poor appetite, poor fluid intake, rectal bleeding , vomiting, other Endocrine: Denies: no symptoms, excessive sweating, flushing, intolerance to cold, intolerance to heat, increased hunger, increased thirst, increased urine, unexplained weight gain, unexplained weight loss, other Allergies: Coded Allergies: SULFA (SULFONAMIDE ANTIBIOTICS) (Verified Allergy, Mild, 06/21/09) MORPHINE (Verified Allergy, Unknown, 10/13/14) ALLERGIC TO LIQUID MORPHINE ONLY PER S.O. Uncoded Allergies: SULFA (Allergy, Unknown, 06/23/19) Subjective 06/25: awake and alert, no acute events, prelim hiv positive, hep panel negative 06/27: no major changes, no bleeding, no night sweats, no f/c 06/28: no major events, labs reviewed, continue on dilaudid, no bleeding Objective Objective Current Medications Medications (Trade) Dose Ordered Sig/Diaz Route PRN Reason Start Time Stop Time Status Last Admin Dose Admin Gadobutrol (Gadavist) 7.5 mmol NOW PRN IV Radiology Procedure 06/26/19 13:00 06/29/19 12:53 Gemfibrozil (Lopid) 600 mg TWICE A DAY ORAL 06/26/19 18:00 07/23/19 21:59 06/27/19 17:39 Hydromorphone HCl (Dilaudid) 1 mg Q4H PRN IVP For Pain 06/26/19 11:30 06/30/19 11:29 06/28/19 06:19 Lacosamide (Vimpat) 200 mg Q12HR ORAL 06/26/19 21:00 07/23/19 20:59 06/27/19 20:27 Levetiracetam (Keppra) 1,750 mg Q12HR ORAL 06/26/19 21:00 07/23/19 20:59 06/27/19 20:24 Metformin HCl (Glucophage) 850 mg BID ORAL 06/26/19 18:00 07/23/19 20:59 06/27/19 17:39 Patient Own Medication (Patient's Own Med) 1 ea BID ORAL 06/26/19 18:00 07/23/19 22:59 06/27/19 17:39 Patient Own Medication (Patient's Own Med) 1 ea BIDPC ORAL 06/26/19 18:00 07/23/19 22:59 06/27/19 17:40 Patient Own Medication (Patient's Own Med) 1 ea DAILY ORAL 06/27/19 09:00 07/24/19 08:59 06/27/19 08:57 Patient Own Medication (Patient's Own Med) 1 ea DAILY ORAL 06/27/19 09:00 07/24/19 08:59 06/27/19 09:08 Rifaximin (Xifaxan) 550 mg EVERY 12 HOURS ORAL 06/26/19 21:00 06/30/19 20:59 06/27/19 20:26 Topiramate (Topamax) 75 mg EVERY 12 HOURS ORAL 06/26/19 21:00 07/23/19 20:59 06/27/19 20:24 Voriconazole (Vfend) 200 mg EVERY 12 HOURS ORAL 06/26/19 21:00 07/02/19 23:59 06/27/19 20:26 Last 24 Hour Vital Signs Date Time Temp Pulse Resp B/P (MAP) Pulse Ox O2 Delivery O2 Flow Rate FiO2 06/28/19 00:00 97.9 77 19 135/85 (102) 96 06/27/19 21:00 Room Air Room Air 06/27/19 20:00 97.9 84 18 127/84 (98) 96 06/27/19 17:28 98.2 06/27/19 16:00 98.2 87 18 135/81 (99) 99 06/27/19 12:00 98.5 90 18 129/87 (101) 97 06/27/19 09:00 Room Air Room Air 06/27/19 08:00 98.0 85 18 134/86 (102) 95 85 06/27/19 04:00 98.0 85 20 152/85 (107) 96 06/27/19 00:00 97.7 87 20 151/86 (107) 96 06/26/19 21:00 Room Air Room Air 06/26/19 20:00 97.9 86 20 139/91 (107) 97 06/26/19 16:00 98.0 90 20 140/89 (106) 100 06/26/19 12:00 98.1 90 20 150/86 (107) 100 06/26/19 08:13 Room Air Room Air 06/26/19 08:00 97.9 85 18 139/72 (94) 96 Intake and Output 06/27/19 06/28/19 19:00 07:00 Intake Total 1050 ml Balance 1050 ml Intake Oral 1050 ml # Voids 4 Labs Test 06/26/19 06:50 06/27/19 05:10 White Blood Count 2.7 K/UL (4.8-10.8) 2.5 K/UL (4.8-10.8) Red Blood Count 3.17 M/UL (4.70-6.10) 3.24 M/UL (4.70-6.10) Hemoglobin 9.0 G/DL (14.2-18.0) 8.9 G/DL (14.2-18.0) Hematocrit 26.7 % (42.0-52.0) 27.5 % (42.0-52.0) Mean Corpuscular Volume 84 FL (80-99) 85 FL (80-99) Mean Corpuscular Hemoglobin 28.5 PG (27.0-31.0) 27.6 PG (27.0-31.0) Mean Corpuscular Hemoglobin Concent 33.8 G/DL (32.0-36.0) 32.5 G/DL (32.0-36.0) Red Cell Distribution Width 15.0 % (11.6-14.8) 15.6 % (11.6-14.8) Platelet Count 48 K/UL (150-450) 59 K/UL (150-450) Mean Platelet Volume 6.4 FL (6.5-10.1) 6.6 FL (6.5-10.1) Neutrophils (%) (Auto) % (45.0-75.0) % (45.0-75.0) Lymphocytes (%) (Auto) % (20.0-45.0) % (20.0-45.0) Monocytes (%) (Auto) % (1.0-10.0) % (1.0-10.0) Eosinophils (%) (Auto) % (0.0-3.0) % (0.0-3.0) Basophils (%) (Auto) % (0.0-2.0) % (0.0-2.0) Differential Total Cells Counted 100 100 Neutrophils % (Manual) 44 % (45-75) 45 % (45-75) Lymphocytes % (Manual) 46 % (20-45) 44 % (20-45) Monocytes % (Manual) 4 % (1-10) 5 % (1-10) Eosinophils % (Manual) 6 % (0-3) 6 % (0-3) Basophils % (Manual) 0 % (0-2) 0 % (0-2) Band Neutrophils 0 % (0-8) 0 % (0-8) Platelet Estimate Decreased Decreased Platelet Morphology Normal Normal Anisocytosis 1+ 1+ Sodium Level 143 MMOL/L (136-145) Potassium Level 4.2 MMOL/L (3.5-5.1) Chloride Level 112 MMOL/L (98-107) Carbon Dioxide Level 22 MMOL/L (21-32) Anion Gap 9 mmol/L (5-15) Blood Urea Nitrogen 17 mg/dL (7-18) Creatinine 1.0 MG/DL (0.55-1.30) Estimat Glomerular Filtration Rate > 60 mL/min (>60) Glucose Level 111 MG/DL (74-106) Calcium Level 7.8 MG/DL (8.5-10.1) Height (Feet): 5 Height (Inches): 11.00 Weight (Pounds): 195 Objective PE Vitals noted Gen: nad, A+O x3 Pulm: ctab, no cwr CV: rrr, no mgr Abd: sft, nt, nd Ext: no cce Wes Johnson MD Jun 28, 2019 07:46
[2019-06-28 08:00] VITALS: BP 145/93
--- NOTE | 2019-06-28 08:33 | General Progress Note ---
Assessment/Plan Assessment/Plan: (1) HIV/AIDS (2) Peripheral Neuropathy Patient will be reduced on the Dilaudid to 0.5mg IV Q4H PRN We will start [place] 10/325mg PO 1 tab Q4H PRN. D/w Dr. Guevara and he concurred. Subjective Date patient seen: Jun 28, 2019 Time patient seen: 08:00 - am Constitutional: Reports: weakness HEENT: Reports: no symptoms Cardiovascular: Reports: no symptoms Respiratory: Reports: no symptoms Gastrointestinal/Abdominal: Reports: no symptoms Genitourinary: Reports: no symptoms Neurologic/Psychiatric: Reports: numbness, weakness Endocrine: Reports: no symptoms Hematologic/Lymphatic: Reports: no symptoms Allergies: Coded Allergies: SULFA (SULFONAMIDE ANTIBIOTICS) (Verified Allergy, Mild, 06/21/09) MORPHINE (Verified Allergy, Unknown, 10/13/14) ALLERGIC TO LIQUID MORPHINE ONLY PER S.O. Uncoded Allergies: SULFA (Allergy, Unknown, 06/23/19) Subjective Patient showing no signs of pain or distress. D/w patient about changing the Dilaudid to [place] and he seems to understand. Objective Last 24 Hour Vital Signs Date Time Temp Pulse Resp B/P (MAP) Pulse Ox O2 Delivery O2 Flow Rate FiO2 06/28/19 04:00 98.4 81 19 140/87 (104) 96 06/28/19 00:00 97.9 77 19 135/85 (102) 96 06/27/19 21:00 Room Air Room Air 06/27/19 20:00 97.9 84 18 127/84 (98) 96 06/27/19 17:28 98.2 06/27/19 16:00 98.2 87 18 135/81 (99) 99 06/27/19 12:00 98.5 90 18 129/87 (101) 97 06/27/19 09:00 Room Air Room Air Intake and Output 06/27/19 06/28/19 19:00 07:00 Intake Total 1050 ml 480 ml Balance 1050 ml 480 ml Intake Oral 1050 ml 480 ml # Voids 4 3 # Bowel Movements 2 Height (Feet): 5 Height (Inches): 11.00 Weight (Pounds): 195 General Appearance: no apparent distress, alert EENT: PERRL/EOMI, normal ENT inspection Neck: non-tender, normal alignment Cardiovascular: normal rate, regular rhythm Respiratory/Chest: decreased breath sounds Abdomen: non tender Extremities: non-tender Edema: no edema noted Generalized Neurologic: alert, oriented x 3 Skin: normal pigmentation Angelito Doe Jun 28, 2019 08:33
--- NOTE | 2019-06-28 08:42 | NUR ---
CONCERNING MRI, PT AGAIN STATED HE WISHES TO GO TO AN OPEN SCANNER LIKE THEY HAVE AT [facility]. PT IS VERY CLAUSTROPHOBIC, AND WAS ALREADY GIVEN ATIVAN THE LAST TIME HE TRIED THE SCAN. HUBER ERVIN HAS BEEN INFORMED AND WILL INFORM DR. HENAO OF THE PT'S REFUSAL TO PERFORM THE MRI. LEIDY 08:30
[2019-06-28] MEDS ORDERED: HYDROcodone/Acetamin 10/325 tab ORAL PRN (08:45)
--- NOTE | 2019-06-28 09:08 | General Progress Note ---
Assessment/Plan Problem List: (1) Acute bilateral low back pain ICD Codes: M54.5 - Low back pain SNOMED: 112449120 (2) Drug abuse ICD Codes: F19.10 - Other psychoactive substance abuse, uncomplicated SNOMED: 12746976 (3) Anemia ICD Codes: D64.9 - Anemia, unspecified SNOMED: 352630661 (4) Leukopenia ICD Codes: D72.819 - Decreased white blood cell count, unspecified SNOMED: 60189504, 099581834 (5) Seizure disorder ICD Codes: G40.909 - Epilepsy, unspecified, not intractable,without status epilepticus SNOMED: 266979872 Status: unchanged Assessment/Plan: pt diet pain control abx cbc bmp am brotman aru eval Subjective Constitutional: Reports: weakness Allergies: Coded Allergies: SULFA (SULFONAMIDE ANTIBIOTICS) (Verified Allergy, Mild, 06/21/09) MORPHINE (Verified Allergy, Unknown, 10/13/14) ALLERGIC TO LIQUID MORPHINE ONLY PER S.O. Uncoded Allergies: SULFA (Allergy, Unknown, 06/23/19) All Systems: reviewed and negative except above Subjective calm in bed Objective Last 24 Hour Vital Signs Date Time Temp Pulse Resp B/P (MAP) Pulse Ox O2 Delivery O2 Flow Rate FiO2 06/28/19 04:00 98.4 81 19 140/87 (104) 96 06/28/19 00:00 97.9 77 19 135/85 (102) 96 06/27/19 21:00 Room Air Room Air 06/27/19 20:00 97.9 84 18 127/84 (98) 96 06/27/19 17:28 98.2 06/27/19 16:00 98.2 87 18 135/81 (99) 99 06/27/19 12:00 98.5 90 18 129/87 (101) 97 Intake and Output 06/27/19 06/28/19 19:00 07:00 Intake Total 1050 ml 480 ml Balance 1050 ml 480 ml Intake Oral 1050 ml 480 ml # Voids 4 3 # Bowel Movements 2 Height (Feet): 5 Height (Inches): 11.00 Weight (Pounds): 195 General Appearance: alert EENT: normal ENT inspection Neck: normal alignment Cardiovascular: normal peripheral pulses, normal rate, regular rhythm Respiratory/Chest: chest wall non-tender, lungs clear, normal breath sounds Abdomen: normal bowel sounds, non tender, soft Extremities: normal inspection Edema: no edema noted Arm (L), no edema noted Arm (R), no edema noted Leg (L), no edema noted Leg (R), no edema noted Pedal (L), no edema noted Pedal (R), no edema noted Generalized Neurologic: responsive, motor weakness Skin: normal pigmentation, warm/dry Mc Ernandez DO Jun 28, 2019 09:08
[2019-06-28] MEDS: Lacosamide 50mg tablet ORAL SCH (09:38)
[2019-06-28] MEDS: Patient's Own Med - Tivicay 50mg ORAL SCH ×2 (09:40→18:08)
[2019-06-28] MEDS: ATAZANAVIR 300 MG ORAL SCH (09:40)
[2019-06-28] MEDS: Patient's Own Med - Ritonavir 100mg ORAL SCH (09:41)
[2019-06-28] MEDS: Topiramate 25mg tab ORAL SCH (09:50)
[2019-06-28] MEDS ORDERED: HYDROmorphone 1mg/ml Carpuject IVP SCH (10:00)
--- NOTE | 2019-06-28 11:33 | Infectious Diseases Prog Note ---
Assessment/Plan Assessment/Plan Assessment: Probable seizure -UDS+ amphetamines -RPR neg Memory loss, peripheral neuropathy Back pain -06/23 CT L spine wo: No evidence of acute fracture or traumatic malalignment. Diffuse sclerosis of the osseous structures which may be related to hyperparathyroidism (primary versus secondary, for example renal osteodystrophy). Additional considerations including multiple myeloma or bony menisci (primary or secondary) not excluded. Multilevel degenerative changes of the lumbar spine, progressed compared to theprior exam in 2013. Afebrile Pancytopenia -u/a neg -06/23 CXR: No definite radiographic evidence of acute cardiopulmonary disease. Increased sclerosis of the vertebral bodies noted, as better seen on concurrent lumbar spine CT. This may be related to hyperparathyroidism (primary versus secondary). Additional considerations including multiple myeloma or bony malignancy, primary or secondary, not excluded. Correlation with history recommended. 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 Will continue to follow along with you. Subjective Allergies: Coded Allergies: SULFA (SULFONAMIDE ANTIBIOTICS) (Verified Allergy, Mild, 06/21/09) MORPHINE (Verified Allergy, Unknown, 10/13/14) ALLERGIC TO LIQUID MORPHINE ONLY PER S.O. Uncoded Allergies: SULFA (Allergy, Unknown, 06/23/19) Subjective afebrile Objective Vital Signs Last 24 Hour Vital Signs Date Time Temp Pulse Resp B/P (MAP) Pulse Ox O2 Delivery O2 Flow Rate FiO2 06/28/19 08:00 98.2 85 18 145/93 (110) 99 06/28/19 04:00 98.4 81 19 140/87 (104) 96 06/28/19 00:00 97.9 77 19 135/85 (102) 96 06/27/19 21:00 Room Air Room Air 1/19/20 20:00 97.9 84 18 127/84 (98) 96 06/27/19 17:28 98.2 06/27/19 16:00 98.2 87 18 135/81 (99) 99 06/27/19 12:00 98.5 90 18 129/87 (101) 97 Height (Feet): 5 Height (Inches): 11.00 Weight (Pounds): 195 Objective General Appearance: alert EENT: normal ENT inspection Neck: normal alignment Cardiovascular: normal peripheral pulses, normal rate, regular rhythm Respiratory/Chest: chest wall non-tender, lungs clear, normal breath sounds Abdomen: normal bowel sounds, non tender, soft Extremities: normal inspection Neurologic: responsive, motor weakness Skin: normal pigmentation, warm/dry Current Medications Medications (Trade) Dose Ordered Sig/Diaz Route PRN Reason Start Time Stop Time Status Last Admin Dose Admin Acetaminophen/ Hydrocodone Bitart ([place] 10/325) 1 tab Q4H PRN ORAL Moderate Pain (Pain Scale 4-6) 06/28/19 08:45 07/05/19 08:44 Gadobutrol (Gadavist) 7.5 mmol NOW PRN IV Radiology Procedure 06/26/19 13:00 06/29/19 12:53 Gemfibrozil (Lopid) 600 mg TWICE A DAY ORAL 06/26/19 18:00 07/23/19 21:59 06/28/19 09:39 Hydromorphone HCl (Dilaudid) 0.5 mg Q4H PRN IVP Severe Pain (Pain Scale 7-10) 06/28/19 11:30 07/09/19 08:00 Lacosamide (Vimpat) 200 mg Q12HR ORAL 06/26/19 21:00 07/23/19 20:59 06/28/19 09:38 Levetiracetam (Keppra) 1,750 mg Q12HR ORAL 06/26/19 21:00 07/23/19 20:59 06/28/19 09:39 Metformin HCl (Glucophage) 850 mg BID ORAL 06/26/19 18:00 07/23/19 20:59 06/28/19 09:39 Patient Own Medication (Patient's Own Med) 1 ea BID ORAL 06/26/19 18:00 07/23/19 22:59 06/28/19 09:40 Patient Own Medication (Patient's Own Med) 1 ea BIDPC ORAL 06/26/19 18:00 07/23/19 22:59 06/28/19 09:40 Patient Own Medication (Patient's Own Med) 1 ea DAILY ORAL 06/27/19 09:00 07/24/19 08:59 06/28/19 09:40 Patient Own Medication (Patient's Own Med) 1 ea DAILY ORAL 06/27/19 09:00 07/24/19 08:59 06/28/19 09:41 Rifaximin (Xifaxan) 550 mg EVERY 12 HOURS ORAL 06/26/19 21:00 06/30/19 20:59 06/28/19 09:39 Topiramate (Topamax) 75 mg EVERY 12 HOURS ORAL 06/26/19 21:00 07/23/19 20:59 06/28/19 09:50 Voriconazole (Vfend) 200 mg EVERY 12 HOURS ORAL 06/26/19 21:00 07/02/19 23:59 06/28/19 09:39 Niki Jaimes M.D. Jun 28, 2019 11:33
[2019-06-28 12:00] VITALS: BP 135/70
[2019-06-28] MEDS ORDERED: TOPAMAX25 MG ORAL (13:31)
[2019-06-28] MEDS ORDERED: VIMPAT200 MG PO (13:31)
[2019-06-28] MEDS ORDERED: INTELENCE100 MG ORAL (13:36)
[2019-06-28] MEDS ORDERED: NORVIR100 M2 ORAL (13:37)
[2019-06-28] MEDS ORDERED: TIVICAY50 MG ORAL (13:38)
[2019-06-28] MEDS ORDERED: REYATAZ300 MG ORAL (13:39)
--- NOTE | 2019-06-28 13:44 | NUR ---
RD ASSESSMENT & RECOMMENDATIONS SEE CARE ACTIVITY FOR COMPLETE ASSESSMENT DAILY ESTIMATED NEEDS: Needs based on H/o HIV, DM 81.8 abw 25-30 kcals/kg 8933-8495 total kcals 1-1.5 g protein/kg 82-123 g total protein 25-30 mL/kg 7842-0048 total fluid mLs NUTRITION DIAGNOSIS: Altered nutrition related lab values r/t clinical status as evidenced by low WBC (2.5), low Hgb (8.9), elev T bili (2.5), elev LFT's, elev Creat kinase. CURRENT DIET: Regular PO DIET RECOMMENDATIONS: LOW NA DIET ADDITIONAL RECOMMENDATIONS: 1) With elev BG, rec [facility] MED diet 2) Obtain a standing weight .
[2019-06-28] MEDS: Hydromorphone 0.5mg/0.5ml inj IVP PRN ×2 (14:36→18:36)
[2019-06-28] MEDS ORDERED: Heplock Flush 100 units/ml 3 ml syr INJ SCH (15:23)
--- NOTE | 2019-06-28 15:27 | NUR ---
NURSE NOTES: Received order from Dr. Morrison for one time heparin flush to de-access port a cath prior to discharge. Order entered.
[2019-06-28 16:00] VITALS: BP 149/92
--- NOTE | 2019-06-28 19:22 | NUR ---
NURSE NOTES: Patient discharged from medical care. No acute distress on discharge. Port a cath flushed with saline and heparin flush per [facility] [place] and de-accessed with needle intact. Patient and his provided with after care instructions, patient verbalized understanding of after care instructions. Patient provided with home medications from pharmacy, all belongings present on discharge. Wrist band removed. Patient escorted to private vehicle via wheelchair by MANAGER SECURITY.
--- NOTE | 2019-06-29 08:03 | Discharge Summary ---
Discharge Summary Discharge Summary _ DATE OF ADMISSION: 06/23/2019 DATE OF DISCHARGE: 06/28/2019 DISCHARGED BY: Dr Ernandez REASON FOR ADMISSION: 44 years old male with past medical history of HIV, seizure disorder, diabetes mellitus, fungal meningitis, presented with increased back pain . Patient apparently had a period of loss of consciousness and woke up on the ground next to a bus bench. Patient received loading dose of Keppra . CT spine of the lumbar spine revealed no evidence of fracture or other acute abnormality, some mild multilevel degenerative changes of the lumbar spine noted. IVC filter noted. It also demonstrated increased sclerosis of the vertebral bodies , possibly related to hyperparathyroidism , primary versus secondary. Additional consideration include multiply myeloma or bony malignancy. Laboratory work-up revealed no leukocytosis, anemia with hemoglobin 9.5 , hematocrit 29. platelet count 51. Stable renal parameters. Glucose 129. Total bilirubin 2.5, direct bilirubin 0.5. AST 56 , alkaline phosphatase 203. Troponin negative. EKG revealed sinus rhythm , no acute ischemic changes. Urinalysis revealed +3 protein, no evidence of UTI . Urine toxicology screen was positive for amphetamines . Serum alcohol less than 3. In emergency room patient received a loading dose of Keppra and admitted for further management . CONSULTANTS: neurologist Dr. Wells maintenance of way superintendent/oncologist Dr. Johnson orthopedic surgeon Dr. Sibley pain specialist Dr. Guevara HOSPITAL COURSE: Patient admitted. Seizure precaution maintained. Home medication were resumed. Neurologist followed. EEG showed encephalopathy of moderate degree . Keppra continued along with Vimpat and Topamax. No evidence of seizure activity while in the hospital. Pain management was addressed as per pain specialist recommendation . Patient was working with physical therapist ID specialist followed. RPR negative. FTA ABC pending at the time of this dictation. Hepatitis panel negative. CD4 count 245. Patient diagnosed with HIV in 1992 . Patient on antiretroviral therapy. He reported undetectable viral load. Patient had a history of cocci meningitis in 2012. Patient was monitored off antibiotic. Voriconazole continued for maintenance therapy for prior cocci meningitis. Oncologist closely reviewed CT scan and recommended outpatient evaluation for multiply myeloma , serum protein electrophoresis and urine protein electrophoresis to be obtained. Counts were closely monitored. Patient has severe thrombocytopenia . Anemia work-up revealed evidence of anemia of iron deficiency. Hemoglobin and hematocrit were closely monitored with goal to keep hemoglobin above 7. No evidence of hemolysis. Patient with history of DVT of lower extremity and had IVC filter. Patient also on Xarelto. Patient with significant narcotic dependency. outdoor recreation specialist followed, as mentioned above. Blood sugar was managed with a sliding scale of insulin. Patient was educated on diabetic diet. Prior to discharge WBC 2.5, hemoglobin 8.9, hematocrit 27.5, platelet count 69. MRI of the brain was ordered by ID specialist , but patient declined it , stating that he wants to go to the open MRI , which was not available at the facility. Patient clinically stabilized and was ready for discharge . Outpatient follow-up with a primary care provider and HIV provider. Patient was also explained that he needs further work-up for possible multiple myeloma with serum protein electrophoresis and urine protein electrophoresis. FINAL DIAGNOSES: Acute low back pain Seizure disorder Substance abuse Anemia of iron deficiency Thrombocytopenia, severe History of fungal meningitis Diffuse sclerosis of the spine Acute low back pain Peripheral neuropathy Significant narcotic dependency DVT of lower extremity HIV disease DISCHARGE MEDICATIONS: See Medication Reconciliation list. DISCHARGE INSTRUCTIONS: Patient was discharged home. Follow-up with a primary care provider in 1 week. I have been assigned to dictate discharge summary for this account. I was not involved in the patient's management. Isabella White NP Jun 29, 2019 08:03
== END 2019-06-28 19:20 | disposition home or self-care (01) | DRG 100 ==
LOC: EDBD 08:55 → EMR 09:40 → 2E 10:05 → EDBEDREQ 12:40 → 3E 06-26 11:25
DX: G40.909 Epilepsy, unspecified, not intractable, without status epilepticus (principal); G93.41 Metabolic encephalopathy; B20 Human immunodeficiency virus [HIV] disease; G95.89 Other specified diseases of spinal cord; F11.20 Opioid dependence, uncomplicated; D61.818 Other pancytopenia; Z88.6 Allergy status to analgesic agent; Z88.2 Allergy status to sulfonamides; F19.10 Other psychoactive substance abuse, uncomplicated; D69.6 Thrombocytopenia, unspecified; M54.5 Low back pain; G62.9 Polyneuropathy, unspecified; Z90.49 Acquired absence of other specified parts of digestive tract; Z95.828 Presence of other vascular implants and grafts; G62.89 Other specified polyneuropathies; Z86.718 Personal history of other venous thrombosis and embolism; Z91.81 History of falling; M75.102 Unspecified rotator cuff tear or rupture of left shoulder, not specified as traumatic; D50.9 Iron deficiency anemia, unspecified; Z66 Do not resuscitate; Z86.19 Personal history of other infectious and parasitic diseases
CPT/HCPCS: 36415; 71045; 72131; 80048; 80053; 80299; 80307; 81003; 82248; 82550; 82607; 82728; 82962; 83540; 83550; 84484; 85007; 85025; 86360; 86592; 86689; 86703; 86705; 86709; 86780; 86803; 87340; 87536; 93005; 95819; 96361; 96374; 96375; 97803; 99285; G0480; J7030

== ENCOUNTER 2019-07-21 21:52 | Emergency (ER) | payer MEDICARE, MEDICAID ==
[~2019-07-21] VITALS: Ht 180.3 cm; Wt 83.9 kg
[~2019-07-21 21:52] MED LIST changes: +ACYCLOVIR200 MG ORAL; +DIAZEPAM2 MG ORAL; +FUROSEMIDE20 M1 ORAL; +INTELENCE100 MG ORAL; +KEPPRA500 M4 ORAL; +LOPID600 MG ORAL; +NEXIUM2.5 MG ORAL; +NORVIR100 M2 ORAL; +PHENERGAN SUPP25 MG BC; +REYATAZ300 MG ORAL; +TIVICAY50 MG ORAL; +TOPAMAX25 MG ORAL; +VIAGRA25 MG ORAL; +VIMPAT200 MG PO
--- NOTE | 2019-07-21 22:00 | NUR ---
ED Nurse Note: PT WALKED IN TO ED C/O CHRONIC LOWER BACK PAIN AND NEW ONSET OF PAIN ON BILAT LOWER EXTREMETIES. PT STATES 8/10 SHARP PAIN. PT ALSO REPORTS HAVING SZ 30 MIN AGO. FRIEND AT BEDSIDE, MARKO SALEEM. WILL CONTINUE TO MONITOR PATIENT.
--- NOTE | 2019-07-21 22:13 | Emergency Room Report ---
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 He also history of seizure and chronic pain. He takes fentanyl patches 100 mcg every 3 days and Percocet 10 mg for breakthrough pain. He presents with chief complaint of back pain and lower extremity pain. His back pain is chronic but he said it is worse today. He said that his legs are painful and burning sensation to the bottom of both feet. No trauma. Supposedly had a 6- minute tonic-clonic seizure today. Witnessed by significant other. He said he did not have any or trauma. Very minimal incontinence of urine. Had a brief postictal period. He said he is compliant with his Keppra. No nausea no vomiting. Pain is 10 out of 10. No fever chills. No trauma. They made it better. Movement made it worse. Pain is to the lower back rating to both legs. No incontinence of bowel or urine. Allergies: Coded Allergies: SULFA (SULFONAMIDE ANTIBIOTICS) (Verified Allergy, Mild, 06/21/09) MORPHINE (Verified Allergy, Unknown, 10/13/14) ALLERGIC TO LIQUID MORPHINE ONLY PER S.O. Uncoded Allergies: SULFA (Allergy, Unknown, 06/23/19) Patient History Past Medical History: see triage record, old chart reviewed, DM, seizures, HIV Past Surgical History: yanique Pertinent Family History: none Social History: Reports: drug use Immunizations: other Reviewed Nursing Documentation: PMH: Agreed; PSxH: Agreed Nursing Documentation-PMH Hx Cardiac Problems: No - HIV Hx Hypertension: No Hx Pacemaker: No Hx Asthma: No Hx COPD: No Hx Diabetes: Yes Hx Cancer: No Hx Gastrointestinal Problems: Yes - gall bladder removed Hx Dialysis: No History Of Psychiatric Problem: No Hx Neurological Problems: No Hx Cerebrovascular Accident: No Hx Meningitis: Yes Hx Encephalitis: Yes - ENCEPHALOPATHY Hx Seizures: Yes Hx Peripheral Neuropathy: Yes Hx Concentration Difficulty: Yes Hx Dizziness: Yes Hx Headaches: Yes Hx Weakness: Yes Hx Fatigue: Yes Hx Neurologic Surgery: Yes Review of Systems Eye: Denies: eye pain, blurred vision ENT: Denies: ear pain, nose congestion, throat swelling Respiratory: Denies: cough, shortness of breath Cardiovascular: Denies: chest pain, palpitations Gastrointestinal: Denies: abdominal pain, diarrhea, nausea, vomiting Musculoskeletal: Reports: back pain, muscle pain; Denies: joint pain Skin: Denies: rash Neurological: Denies: headache, numbness Endocrine: Denies: increased thirst, increased urine Hematologic/Lymphatic: Denies: easy bruising All Other Systems: negative except mentioned in HPI Physical Exam Vital Signs Date Time Temp Pulse Resp B/P (MAP) Pulse Ox O2 Delivery O2 Flow Rate FiO2 07/21/19 21:55 98.2 84 18 124/86 (99) 97 Room Air Vitals normal Sp02 EP Interpretation: reviewed, normal General Appearance: well appearing, no apparent distress, alert, other - Very histrionic Head: normocephalic, atraumatic Eyes: bilateral eye PERRL, bilateral eye EOMI ENT: hearing grossly normal, normal pharynx Neck: full range of motion, supple, no meningismus Respiratory: chest non-tender, lungs clear, normal breath sounds Cardiovascular #1: regular rate, rhythm, no murmur Gastrointestinal: normal bowel sounds, non tender, no mass, no organomegaly, no bruit, non-distended Musculoskeletal: back normal - Diffuse tenderness. No step-off. No anesthesia., normal range of motion, gait/station normal Psychiatric: mood/affect normal Medical Decision Making Diagnostic Impression: Primary Impression: Acute bilateral low back pain Qualified Codes: M54.5 - Low back pain Additional Impression: Opiate dependence Qualified Codes: F11.20 - Opioid dependence, uncomplicated ER Course Patient with exacerbation of chronic lower back pain. No evidence of cauda equina, spinal epidural abscess or neoplastic process. He had a recent CT scan 3 weeks ago which showed degenerative changes. He has no red flags to indicate another CT scan. Pain is well controlled. Will discharge home. He may need an MRI instead. Last Vital Signs Date Time Temp Pulse Resp B/P (MAP) Pulse Ox O2 Delivery O2 Flow Rate FiO2 07/21/19 21:55 98.2 84 18 124/86 (99) 97 Room Air Status: improved Disposition: HOME, SELF-CARE Condition: Stable Additional Instructions: Follow-up with your doctor in 7 days. If you are having increasing pain or fever, you may need an MRI of your back. You may need a cortisone injection. Return if symptoms worsen. Kev Ramirez MD Jul 21, 2019 22:13
--- NOTE | 2019-07-21 22:35 | NUR ---
ED Nurse Note: BLOOD AND URINE COLLECTED AND SENT TO LAB.
[2019-07-21 22:43] LABS: HEMATOCRIT 29.4 % (42.0-52.0); MEAN CORPUSCULAR VOLUME 87 FL (80-99); PLATELET COUNT 68 K/UL (150-450); RED BLOOD COUNT 3.36 M/UL (4.70-6.10); RED CELL DISTRIBUTION WIDTH 16.4 % (11.6-14.8); WHITE BLOOD COUNT 3.3 K/UL (4.8-10.8)
[2019-07-21 22:52] LABS: ANION GAP 12 mmol/L (5-15); BLOOD UREA NITROGEN 17 mg/dL (7-18); CALCIUM 8.4 MG/DL (8.5-10.1); CARBON DIOXIDE 21 MMOL/L (21-32); CHLORIDE 112 MMOL/L (98-107); POTASSIUM 3.9 MMOL/L (3.5-5.1); SODIUM 145 MMOL/L (136-145)
[2019-07-21 22:56] VITALS: BP 121/78
[2019-07-21 23:08] LABS: APPEARANCE,URINE CLEAR; BILIRUBIN, URINE NEGATIVE (NEGATIVE); COLOR,URINE YELLOW; GLUCOSE, URINE (UA) NEGATIVE (NEGATIVE); KETONES,URINE NEGATIVE (NEGATIVE); LEUKOCYTE ESTERASE ,URINE NEGATIVE (NEGATIVE); NITRITE,URINE NEGATIVE (NEGATIVE); PH,URINE 7 (4.5-8.0); PROTEIN,URINE 3+ (NEGATIVE); UROBILINOGEN,URINE NORMAL MG/DL (0.0-1.0)
[2019-07-22] MEDS ORDERED: HYDROmorphone 1mg/ml Carpuject IVP ONE
[2019-07-22 00:20] VITALS: BP 121/78
--- NOTE | 2019-07-22 00:20 | NUR ---
ER DISCHARGE NOTE: Patient is cleared to be discharged per ERMD, pt is aox4, on room air, with stable vital signs. pt was given dc and prescription instructions, pt was able to verbalize understanding, pt id band and iv site removed without complications. pt is able to ambulate with steady gait. pt took all belongings.
== END 2019-07-22 00:20 | disposition home or self-care (01) ==
LOC: EMR 22:50
DX: M54.5 Low back pain (principal); F11.20 Opioid dependence, uncomplicated; B20 Human immunodeficiency virus [HIV] disease; Z88.2 Allergy status to sulfonamides; Z88.6 Allergy status to analgesic agent; E11.9 Type 2 diabetes mellitus without complications; Z90.49 Acquired absence of other specified parts of digestive tract; G40.909 Epilepsy, unspecified, not intractable, without status epilepticus
CPT/HCPCS: 36415; 80048; 80307; 81001; 85007; 85025; 85651; 86140; 96374; 96375; 96376; 99284; J1170; J2405